=== PATIENT | male | born 1950 | race Caucasian/White ===

== ENCOUNTER → 2016-04-16 | Day surgery (SDC) | payer OTHER, BC ==
[~2016-04-16] MED LIST: IOPAMIDOL (ISOVUE-300) 100 ML BTL IV ONE
--- NOTE | 2016-04-16 17:18 | IR ---
Exchange of Bilateral Ureteral Stents History: Metastatic bladder cancer. Routine exchange for maintenance of patency. The patient has long pigtail nephrostomy-type tubes draining from each renal pelvis, passing through the small bowel cond uit, exiting externally into the collection bag. Medication: Ceftriaxone 1 gram intravenously for antimicrobial prophylaxis. No sedation or analgesia. Consent: Risks and benefits of the procedure were discussed in detail. Informed consent was obtained . Fluoroscopy time in minutes: 1.0. Estimated exposure in mGy: 19.7. Technique: Preliminary nephrostograms were imaged by injecting half-strength Isovue-300 into each of the catheters, and spot images were obtained. 0.035 Amplatz wires were placed bilaterally, and indwe lling tubes were replaced simultaneously with new 10-Faroese long pigtail nephrostomy tubes. Spot imag e was taken. Catheters were irrigated. A new collection bag was placed at the ureterostomy. The patie nt tolerated the procedure well and was allowed to leave the department. Findings: The previous tubes are patent, and replacement is uncomplicated. The new tubes are in good positions. Impression: Replacement of bilateral internal-external nephroureterostomy tubes. Plan: Routine exchange for maintenance of patency in three months. - - - - - - - - - - - - - - - - - - - - - - - - - - - - - - - - - - - - - - - - - - - - (PQRS Measures: Current medications were listed in the medical record, including all known prescript ions, [id number] medications, herbal medications, and nutritional supplements. Tobacco Use: Non e. Prophylactic Antibiotic: Ceftriaxone 1 gram intravenous was given 40 minutes before the procedure and then discontinued. VTE Prophylaxis: Unnecessary.)
--- NOTE | 2016-04-16 17:18 | IR ---
Exchange of Bilateral Ureteral Stents History: Metastatic bladder cancer. Routine exchange for maintenance of patency. The patient has long pigtail nephrostomy-type tubes draining from each renal pelvis, passing through the small bowel cond uit, exiting externally into the collection bag. Medication: Ceftriaxone 1 gram intravenously for antimicrobial prophylaxis. No sedation or analgesia. Consent: Risks and benefits of the procedure were discussed in detail. Informed consent was obtained . Fluoroscopy time in minutes: 1.0. Estimated exposure in mGy: 19.7. Technique: Preliminary nephrostograms were imaged by injecting half-strength Isovue-300 into each of the catheters, and spot images were obtained. 0.035 Amplatz wires were placed bilaterally, and indwe lling tubes were replaced simultaneously with new 10-Welsh long pigtail nephrostomy tubes. Spot imag e was taken. Catheters were irrigated. A new collection bag was placed at the ureterostomy. The patie nt tolerated the procedure well and was allowed to leave the department. Findings: The previous tubes are patent, and replacement is uncomplicated. The new tubes are in good positions. Impression: Replacement of bilateral internal-external nephroureterostomy tubes. Plan: Routine exchange for maintenance of patency in three months. - - - - - - - - - - - - - - - - - - - - - - - - - - - - - - - - - - - - - - - - - - - - (PQRS Measures: Current medications were listed in the medical record, including all known prescript ions, [id number]-acljsjq medications, herbal medications, and nutritional supplements. Tobacco Use: Non e. Prophylactic Antibiotic: Ceftriaxone 1 gram intravenous was given 40 minutes before the procedure and then discontinued. VTE Prophylaxis: Unnecessary.)
== END | disposition home or self-care (01) ==
LOC: FIMAGING 09:21
PROVIDERS: ATTEND Radiology Diagnostic Radiology
PROC: 0T29X0Z Change Drainage Device in Ureter, External Approach (ICD-10-PCS; principal; 2016-04-16)
DX: Z43.6 Encounter for attention to other artificial openings of urinary tract (principal); C67.9 Malignant neoplasm of bladder, unspecified
CPT/HCPCS: 50688; C1729; C1769; J0696; J1644; Q9967

== ENCOUNTER → 2016-07-16 | Day surgery (SDC) | payer OTHER, BC | END | disposition home or self-care (01) | LOC: FIMAGING 09:28 | PROVIDERS: ATTEND Specialist | PROC: [UNRECOGNIZED PROCEDURE] (principal; 2016-07-16) | DX: Z43.6 Encounter for attention to other artificial openings of urinary tract (principal); C67.9 Malignant neoplasm of bladder, unspecified | CPT/HCPCS: 50435; C1729; C1769; J0696; J1644; Q9967 ==

== ENCOUNTER 2016-09-21 13:37 | Inpatient (IN) | payer OTHER, BC ==
--- NOTE | 2016-09-21 14:06 | CPEKG ---
Heart Rate: 56 RR Interval: 1071 P-R Interval: 232 QRSD Interval: 96 QT Interval: 448 QTC Interval: 433 P Renwick: 23 QRS Renwick: -4 T Wave Renwick: 65 EKG Severity - ABNORMAL ECG - EKG Impression: SINUS RHYTHM EKG Impression: ATRIAL PREMATURE COMPLEX EKG Impression: FIRST DEGREE AV BLOCK EKG Impression: CONSIDER ANTEROSEPTAL INFARCT Electronically Signed By: Meenakshi Deluna 21-Sep-2016 21:19:25
--- NOTE | 2016-09-21 14:28 | EDPHY ---
H & P Time Seen by Provider: 09/21/16 14:00 HPI/ROS: CHIEF COMPLAINT: Disoriented, lethargic HISTORY OF PRESENT ILLNESS: The patient is a 66-year-old male with a history of bladder cancer that is currently in remission who presents emergency department with disorientation. The patient states that he had his bladder resected has completed 2 courses of chemotherapy for bladder cancer. He is currently in remission. He had knee replacement surgery on 08/14/2016. Since that time he has "not been right." He has had increased fatigue and confusion. He has had intermittent episodes of feeling sweaty. His describes him as a "sloth from [employer]." Patient feels as though he is responding to questions slowly. He has had no slurred speech. No focal weakness. No new leg pain. No fevers. No chest pain or shortness of breath. No abdominal pain. No nausea or vomiting. He has noted darker output from his urostomy bag REVIEW OF SYSTEMS: My complete review of systems is negative except as mentioned in the HPI. Past Medical/Surgical History: Includes AFib, DVT, bladder cancer, LATOSHA, constipation Past surgical history: Includes knee replacement The social history: The patient is . He does not smoke Smoking Status: Never smoked Physical Exam: Vitals noted. Afebrile GENERAL: Well-appearing, in no acute distress, alert. HEENT: Eyes normal to inspection, normal pharynx, no signs of dehydration. NECK: No thyromegaly, no lymphadenopathy, supple. RESPIRATORY: Clear to auscultation bilaterally, no rales, rhonchi or wheezing. CVS: Regular rate and rhythm, no rubs, murmurs, or gallops. ABDOMEN: Soft, nontender, nondistended, no organomegaly. Urostomy bag. Dark colored red urine. BACK: Normal to inspection, no CVA tenderness. SKIN: Normal color, no rash, warm, dry. No pallor. EXTREMITIES: No pedal edema, no calf tenderness, no Homans sign or cords, no joint swelling. Left surgical scar appears clean dry and intact. Knee brace in place. NEURO/PSYCH: Higher functions: Alert and Oriented x3. Normal speech and cognition. Normal mood and affect. Cranial nerves: Normal as tested. Cerebellar: Normal as tested. Good finger to nose, good [id number], normal gait. Peripheral exam: Normal motor exam. Normal sensation. Constitutional: Initial Vital Signs Temperature (C) 36.4 C 09/21/16 13:51 Heart Rate 61 09/21/16 13:51 Respiratory Rate 18 09/21/16 13:51 Blood Pressure 120/70 09/21/16 13:51 O2 Sat (%) 96 09/21/16 13:51 O2 Delivery Mode Room Air Allergies/Adverse Reactions: POISON OAK Allergy (Severe, Uncoded 09/21/16 13:49) Other-Enter Comments SALMON Allergy (Intermediate, Uncoded 09/21/16 13:49) Vomiting SUPER GLUE Allergy (Uncoded 09/21/16 13:49) Home Medications: Medication Instructions Recorded Herbals/Supplements -Info Only 1 ea PO DAILY 08/01/15 Apixaban [Eliquis] 5 mg PO BID 08/04/15 Sotalol 40 mg PO BID 09/20/15 Medical Decision Making - Diagnostics Imaging Results: Imaging Impressions Abdomen CT 09/21/16 14:31 Impression: 1. Osseous metastatic disease in the lumbosacral spine. 2. See above report for additional findings. Results called and discussed with Dr. Meenakshi Deluna on September 21, 2016 [address] 09/21/16 14:31 Impression: 1. Development of numerous hemorrhagic foci with associated peritumoral edema, consistent with extensive intracranial metastatic disease. 2. See above report for additional findings. Results called and discussed with Dr. Meenakshi Deluna on September 21, 2016 at 1629 hours. ED Course/Re-evaluation: In the emergency department I discussed possible etiologies with the patient and his . I answered all her questions. IV was placed. Laboratory studies ordered. Patient was given normal saline 1 L IV for hydration. Due the patient's disorientation head CT was ordered. Patient had decreased breath sounds on the left and a chest x-ray was ordered. Patient is due to get CT imaging of his abdomen and pelvis on Friday. This was ordered in the emergency department. Sinus at 56. First-degree AV block. Normal axis. Normal intervals. The patient's white count was normal. He had mildly low platelets. He was not anemic. Patient urine showed red cells and white cells. I am awaiting his chemistry panel. Patient was given Rocephin 1 g IV for UTI. I rechecked the patient while here. He had no new complaints. No focal deficits. 16 25: I discussed the CT results with Dr. Sandoval from Radiology. He reports the patient has numerous likely metastatic brain lesions, some of which are hemorrhagic. He recommends MRI imaging. I discussed the result with the patient and his . I answered all her questions. We are still waiting abdominal pelvis CT imaging. I discussed case with Dr. Russell who will admit the patient. I discussed the case with Dr. Slaughter. He recommended I give the patient Decadron 20 mg IV push. This was given. CT of the abdomen pelvis: Please refer the dictated report by Dr. Jasson Sandoval. Patient has metastatic disease to his bones. I discussed the result with the patient. I answered all his questions. Differential Diagnosis: My differential includes but is not limited to metastatic disease, bladder cancer, electrolyte abnormality, sugar abnormality, pneumonia, urinary tract infection, pyelonephritis, bacteremia, sepsis Critical Care Time: Patient required 35 minutes critical care time. This was due the patient's altered mental status, multiple metastatic hemorrhagic lesions to the patient's brain, need for rechecks, discussion with Oncology, and discussion with Dr. Jimenez. - Data Points Laboratory Results: Laboratory Results 09/21/16 14:05 09/21/16 14:05 09/21/16 09/21/16 09/21/16 14:11 14:05 14:05 WBC RBC Hgb Hct MCV MCH MCHC RDW Plt Count MPV Neut % (Auto) Lymph % (Auto) Patrick % (Auto) Eos % (Auto) Baso % (Auto) Nucleat RBC Rel Count Absolute Neuts (auto) Absolute Lymphs (auto) Absolute Monos (auto) Absolute Eos (auto) Absolute Basos (auto) Absolute Nucleated RBC Immature Gran % Immature Gran # PT 15.4 SEC H SEC (12.0-15.0) INR 1.22 H (0.83-1.16) APTT 33.4 SEC SEC (23.0-38.0) Sodium 137 mEq/L mEq/L (134-144) Potassium 4.0 mEq/L mEq/L (3.5-5.2) Chloride 103 mEq/L mEq/L (97-110) Carbon Dioxide 23 mEq/l mEq/l (22-31) Anion Gap 11 mEq/L mEq/L (8-16) BUN 21 mg/dL mg/dL (7-23) Creatinine 1.4 mg/dL H mg/dL (0.7-1.3) Estimated GFR 51 Glucose 111 mg/dL H mg/dL (70-100) Calcium 10.6 mg/dL H mg/dL (8.5-10.4) Total Bilirubin 1.6 mg/dL H mg/dL (0.1-1.4) Conjugated Bilirubin 0.4 mg/dL mg/dL (0.0-0.5) Unconjugated Bilirubin 1.2 mg/dL H mg/dL (0.0-1.1) AST 70 IU/L H IU/L (17-59) ALT 127 IU/L H IU/L (21-72) Alkaline Phosphatase 79 IU/L IU/L (38-126) Troponin I < 0.012 ng/mL ng/mL (0-0.034) Total Protein 6.6 g/dL g/dL (6.3-8.2) Albumin 4.1 g/dL g/dL (3.5-5.0) Lipase 108.0 IU/L IU/L (23-300) Urine Color YELLOW Urine Appearance TURBID Urine pH 6.0 (5.0-7.5) Ur Specific Vernon 1.024 (1.002-1.030) Urine Protein 2+ H (NEGATIVE) Urine Ketones NEGATIVE (NEGATIVE) Urine Blood 3+ H (NEGATIVE) Urine Nitrate POSITIVE H (NEGATIVE) Urine Bilirubin NEGATIVE (NEGATIVE) Urine Urobilinogen NEGATIVE EU EU (0.2-1.0) Ur Leukocyte Esterase 1+ H (NEGATIVE) Urine RBC 50-182 /hpf H /hpf (0-3) Urine WBC 50-182 /hpf H /hpf (0-3) Ur Epithelial Cells NONE SEEN /lpf /lpf (NONE-1+) Urine Bacteria 4+ /hpf H /hpf (NONE SEEN) Urine Mucus 3+ /lpf H /lpf (NONE-1+) Urine Glucose 1+ H (NEGATIVE) 09/21/16 14:05 WBC 5.53 10^3/uL 10^3/uL (3.80-9.50) RBC 4.56 10^6/uL 10^6/uL (4.40-6.38) Hgb 14.7 g/dL g/dL (13.7-17.5) Hct 42.7 % % (40.0-51.0) MCV 93.6 fL fL (81.5-99.8) MCH 32.2 pg pg (27.9-34.1) MCHC 34.4 g/dL g/dL (32.4-36.7) RDW 13.0 % % (11.5-15.2) Plt Count 110 10^3/uL L 10^3/uL (150-400) MPV 9.1 fL fL (8.7-11.7) Neut % (Auto) 80.6 % H % (39.3-74.2) Lymph % (Auto) 10.5 % L % (15.0-45.0) Patrick % (Auto) 7.6 % % (4.5-13.0) Eos % (Auto) 0.9 % % (0.6-7.6) Baso % (Auto) 0.2 % L % (0.3-1.7) Nucleat RBC Rel Count 0.0 % % (0.0-0.2) Absolute Neuts (auto) 4.46 10^3/uL 10^3/uL (1.70-6.50) Absolute Lymphs (auto) 0.58 10^3/uL L 10^3/uL (1.00-3.00) Absolute Monos (auto) 0.42 10^3/uL 10^3/uL (0.30-0.80) Absolute Eos (auto) 0.05 10^3/uL 10^3/uL (0.03-0.40) Absolute Basos (auto) 0.01 10^3/uL L 10^3/uL (0.02-0.10) Absolute Nucleated RBC 0.00 10^3/uL 10^3/uL (0-0.01) Immature Gran % 0.2 % % (0.0-1.1) Immature Gran # 0.01 10^3/uL 10^3/uL (0.00-0.10) PT INR APTT Sodium Potassium Chloride Carbon Dioxide Anion Gap BUN Creatinine Estimated GFR Glucose Calcium Total Bilirubin Conjugated Bilirubin Unconjugated Bilirubin AST ALT Alkaline Phosphatase Troponin I Total Protein Albumin Lipase Urine Color Urine Appearance Urine pH Ur Specific Vernon Urine Protein Urine Ketones Urine Blood Urine Nitrate Urine Bilirubin Urine Urobilinogen Ur Leukocyte Esterase Urine RBC Urine WBC Ur Epithelial Cells Urine Bacteria Urine Mucus Urine Glucose Medications Given: Discontinued Medications Sodium Chloride (Ns) 1,000 mls @ 0 mls/hr IV ONCE ONE; Wide Open PRN Reason: Protocol Stop: 09/21/16 14:31 Last Admin: 09/21/16 15:06 Dose: 1,000 mls Ceftriaxone Sodium/Dextrose (Rocephin 1 Gm (Premix)) 50 mls @ 100 mls/hr IV EDNOW ONE PRN Reason: Protocol Stop: 09/21/16 15:37 Last Admin: 09/21/16 16:13 Dose: 50 mls Departure - Departure Disposition: [facility] Inpatient Acute Clinical Impression: Metastatic cancer to brain Altered mental status Qualifiers: Altered mental status type: unspecified Qualified Code(s): R41.82 - Altered mental status, unspecified Condition: Good Referrals: Isidro Pat DO [Primary Care Provider] - As per Instructions
[2016-09-21] MEDS ORDERED: NS 1,000 ML IV ONE (14:30)
[2016-09-21 14:42] LABS: % IMMATURE GRANULYOCYTES 0.2 % (0.0-1.1); ABSOLUTE IMMATURE GRANULOCYTES 0.01 10^3/uL (0.00-0.10); ADD DIFF? NO; ADD MORPH? NO; ADD SCAN? NO; ATYPICAL LYMPHOCYTE FLAG 0 (0-99); FRAGMENT RBC FLAG 0 (0-99); HEMATOCRIT 42.7 % (40.0-51.0); HEMOGLOBIN 14.7 g/dL (13.7-17.5); LEFT SHIFT FLG 0 (0-99); LIPEMIA HEMOLYSIS FLAG 90 (0-99); MEAN CELL HEMOGLOBIN 32.2 pg (27.9-34.1); MEAN CELL HEMOGLOBIN CONCENTR. 34.4 g/dL (32.4-36.7); MEAN CELL VOLUME 93.6 fL (81.5-99.8); MEAN PLATELET VOLUME 9.1 fL (8.7-11.7); PLATELET CLUMPS FLAG 0 (0-99); PLATELET COUNT 110 10^3/uL (150-400); RED BLOOD CELL COUNT 4.56 10^6/uL (4.40-6.38)
[2016-09-21 14:45] LABS: COLOR YELLOW; LEUKOCYTE ESTERASE,URINE 1+ (NEGATIVE); NITRITE,URINE POSITIVE (NEGATIVE)
[2016-09-21 14:47] LABS: BACTERIA 4+ /hpf (NONE SEEN); MUCUS 3+ /lpf (NONE-1+); RBC,URINE 50-182 /hpf (0-3); WBC,URINE 50-182 /hpf (0-3)
[2016-09-21 14:47] LABS: INR 1.22 (0.83-1.16); PROTIME(PATIENT) 15.4 SEC (12.0-15.0)
[2016-09-21 14:48] LABS: ALANINE AMINOTRANSFERASE 127 IU/L (21-72); ALBUMIN 4.1 g/dL (3.5-5.0); ALKALINE PHOSPHATASE 79 IU/L (38-126); ANION GAP 11 mEq/L (8-16); APTT 33.4 SEC (23.0-38.0); ASPARTATE AMINOTRANSFERASE 70 IU/L (17-59); BILIRUBIN,TOTAL 1.6 mg/dL (0.1-1.4); BILIRUBIN-CONJUGATED 0.4 mg/dL (0.0-0.5); BILIRUBIN-UNCONJUGATED 1.2 mg/dL (0.0-1.1); CALCIUM 10.6 mg/dL (8.5-10.4); CARBON DIOXIDE 23 mEq/l (22-31); CHLORIDE 103 mEq/L (97-110); CREATININE 1.4 mg/dL (0.7-1.3); GLOMERULAR FILTRATION RATE 51; GLUCOSE 111 mg/dL (70-100); SODIUM 137 mEq/L (134-144); TOTAL PROTEIN 6.6 g/dL (6.3-8.2)
[2016-09-21 15:22] LABS: TROPONIN I < 0.012 ng/mL (0-0.034)
[2016-09-21] MEDS ORDERED: DEXAMETHASONE 10 MG/ML VIAL IVP ONE (16:54)
[2016-09-21] MEDS ORDERED: GADOBUTROL 10 ML VIAL IVP ONE (17:23)
[2016-09-21] MEDS ORDERED: MAG HYDROX/AL HYDROX/SIMETH 30 ML UDCUP ONE (18:22)
[2016-09-21] MEDS ORDERED: ONDANSETRON DISINTEGRATING 4 MG TAB PO PRN (19:04)
[2016-09-21] MEDS ORDERED: ONDANSETRON 4 MG/2 ML VIAL IVP PRN (19:04)
[2016-09-21] MEDS ORDERED: ACETAMINOPHEN 325 MG TAB PO PRN (19:04)
--- NOTE | 2016-09-21 20:28 | GHP ---
[f rep st] HISTORY AND PHYSICAL DATE OF ADMISSION: 09/21/2016 CHIEF COMPLAINT: Malaise and fatigue. HISTORY OF PRESENT ILLNESS: The patient is a 66-year-old white male with known bladder cancer, lenin rachel followed by Medical Oncology. He was due to get some surveillance imaging tests next week, but ov er the past week, he has grown gradually more lethargic. He was having some sweats at night that we re interfering with sleep and today, the lethargy became more severe, and his family brought him to the emergency department. His is the main historian, although the patient does appear oriented and is able to answer my questions. His reports that she has noted gradually worsening weakne ss and mild cognitive issues over the past week. He generally has been somewhat weak since knee surgery on August 14. He has had a little more difficu lty getting around and has been working with physical therapy, so overall his physical status has be en somewhat slowed over the last month and a half since that surgery. The mental slowness seems wor se just over the last week or so, however. PAST MEDICAL HISTORY: 1. Bladder cancer diagnosed in 2014, with the bladder removed surgically in May of 2015. He n ow has stents in his kidneys draining into an external bag on his right abdomen. 2. History of sepsis admission shortly after the bladder cancer surgery in June of 2015, requiring hospitalization. 3. History of atrial fibrillation, on Eliquis. 4. History of right leg DVT and pulmonary embolism in 2006, shortly after an orthopedic procedure, for which he took warfarin for 2 years. He stopped it briefly, but then resumed it because of atria l fibrillation and has been on anticoagulation chronically for several years. 5. Obstructive sleep apnea, for which he has been treated with CPAP for the past 2 years. 6. 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 7. Total knee replacement in 2014, shortly after which he was diagnosed with bladder cancer. This appears to have delayed a subsequent diagnosis of patellar fracture postoperatively on that side, wh ich ultimately ended up needing repeat surgery just 1 month ago. 8. Remote history of cholecystectomy. 9. Remote history of appendectomy. MEDICATIONS: Eliquis 5 mg daily, sotalol 40 mg b.i.d., gabapentin 300 mg in the morning, 300 mg in the afternoon, and 600 mg at bedtime (he discontinued this medication as of a week ago or so because of general lethargy). 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 He lives at home with his . They have 2 children, a daughter in this area and another child in [place]. He has one granddaug hter who is 4 years old, living in [place]. He does not drink alcohol. He smokes an occasional cig ar, but has never been a cigarette smoker. REVIEW OF SYSTEMS: CONSTITUTIONAL: Weight has been stable. NEUROLOGIC: See HPI. VISION: No pro blems. ENT: He has difficulty breathing through his nose chronically because of a history of broke n noses. RESPIRATORY: Denies shortness of breath, cough, or wheezing. CARDIOVASCULAR: No chest p ains. GI: Denies nausea, vomiting, diarrhea, constipation, or indigestion. : See HPI. EXTREMI TIES: Has some chronic edema in both legs, a bit worse in the left leg since his recent knee surger y. PHYSICAL EXAMINATION: GENERAL: He is a well-developed white male, lying comfortably in bed. He is oriented, but answers questions a little bit slowly. Very pleasant and in no distress. VITAL SIGN S: Blood pressure 120/70, heart rate 61, oxygen saturation 96%, and he is afebrile. EYES: Pupils equal, round, and reactive to light. Conjunctivae are pink. Throat, mouth, and oropharynx are evelyn gn. NECK: Supple, without adenopathy or thyromegaly. Carotids are 2+ bilaterally. LUNGS: Clear. HEART: Regular at the time of my exam. ABDOMEN: Soft and nontender, without masses. He has an ostomy bag on his right lower quadrant. The skin surrounding this area looks clean and dry. No ope n sores. EXTREMITIES: 1+ edema bilaterally. He has some brawny discoloration on the right leg (si te of his old DVT). He has no calf pain. BACK: There is no bony tenderness. DIAGNOSTIC DATA: EKG shows a sinus rhythm, with borderline first-degree AV block. I read the sharon ng personally. Abdominal CT scan shows lumbar osseous metastases, but no visceral pathology. Head CT scan shows extensive hemorrhagic metastases. LABORATORY DATA: CBC is normal. WBC 5000, hemoglobin 14. INR is normal at 1.22. Electrolytes are normal. BUN 21, creatinine 1.4, calcium mildly elevated at 10.6. AST and ALT are mildly elevated at 70 and 127, respectively. Urinalysis is significant for 50-182 RBCs and 50-182 WBCs per high-pow er field, with 4+ bacteria and 1+ glucose. IMPRESSION: 1. Lethargy, with mild cognitive slowing. Possible causes include what appear to be urinary tract infection and newly discovered brain metastases. Metabolically, he otherwise appears to be doing ok ay. 2. Bladder cancer, metastatic, with evidence of lumbar metastases on CT scan and newly discovered e vidence of brain metastases. He has received a loading dose of Solu-Medrol. We will continue Solu- Medrol q.6 hours for now. 3. Urinary tract infection. Treat with Rocephin. 4. Elevated liver enzymes. This is chronic and basically stable. 5. Hypercalcemia. Very mild. Possibly just related to some mild dehydration, as his appetite has not been great over the last few days. He does not have any nausea or vomiting, and he does not sunny ear severely dehydrated. At this point, this did not require treatment. 6. Mild thrombocytopenia. This is longstanding and stable. 7. Peripheral neuropathy. This is not bothering him at the present time, and gabapentin has been h eld because of some lethargy. I will continue to hold that. 8. Atrial fibrillation. His rate is stable, and he is in a sinus rhythm at this time. Continue El nasra. /[id number]/MODL
[2016-09-21] MEDS: CHOLECALCIFEROL VIT D3 1,000 UNITS TAB PO SCH (23:07)
[2016-09-21] MEDS: APIXABAN 5 MG TAB PO SCH (23:07)
[2016-09-21] MEDS: DEXAMETHASONE 4 MG/ML VIAL IVP SCH (23:09)
[2016-09-21] MEDS: SOTALOL HCL 80 MG TAB PO SCH (23:10)
[2016-09-21] MEDS: D5W 1/2 NS W/ 10 KCl/L 1,000 ML IV SCH (23:58)
[2016-09-22] MEDS: DEXAMETHASONE 4 MG/ML VIAL IVP SCH ×3 (05:59→18:27)
--- NOTE | 2016-09-22 08:23 | HOSPPROG ---
Hospitalist Progress Note Assessment/Plan: #Gram negative URI: >100k. Cont IV CTX, await sensitivities #Weakness: multifactorial with UTI, brain mets/ PT/OT #Metastatic bladder cancer: new brain mets. Whole-brain XRT is best option. Rad- Oncology has been consulted -cont Dex #Hypercalcemia: IVFs #Transaminitis: chronic, stable. Repeat in AM #Paroxysmal a fib: Eliquis #Diet: regular #DVT ppx: Eliquis #Disp: warrants inpt admission with UTI, new mets. IV abx, Rad-onc consultation Subjective: no f/c/s/ Objective: Vital Signs Temp Pulse Resp BP Pulse Ox 36.3 C 55 L 18 156/86 H 96 09/22/16 06:13 09/22/16 06:13 09/22/16 06:13 09/22/16 06:13 09/22/16 06:13 09/21/16 09/22/16 09/23/16 05:59 05:59 05:59 Intake Total 625 150 Output Total 300 Balance 625 -150 PT 15.4 SEC (12.0-15.0) H 09/21/16 14:05 INR 1.22 (0.83-1.16) H 09/21/16 14:05 - Physical Exam Constitutional: no apparent distress Eyes: PERRL Ears, Nose, Mouth, Throat: moist mucous membranes, hearing normal Cardiovascular: regular rate and rhythym, no murmur, rub, or gallop Respiratory: no respiratory distress, no rales or rhonchi Gastrointestinal: normoactive bowel sounds, soft, non-tender abdomen Genitourinary: no bladder fullness, other (ostomy with pink tissue. mild hematuria) Skin: warm Musculoskeletal: full muscle strength Neurologic: AAOx3, CN II-XII Intact Psychiatric: interacting appropriately ICD10 Worksheet Patient Problems: Problems Problem Status Onset Altered mental status Acute Metastatic cancer to brain Acute Atrial fibrillation and flutter Acute Bladder tumor Acute Lightheadedness Acute Orthostatic hypotension Acute VRE (vancomycin-resistant Enterococci) Acute 08/04/15
[2016-09-22] MEDS: cefTRIAXone 2 GM in D5W 50 ML IV SCH (10:15)
[2016-09-22] MEDS: ASCORBIC ACID 500 MG TAB PO SCH (10:16)
[2016-09-22] MEDS: APIXABAN 5 MG TAB PO SCH ×2 (10:16→20:41)
[2016-09-22] MEDS: SOTALOL HCL 80 MG TAB PO SCH ×2 (10:16→20:41)
--- NOTE | 2016-09-22 12:50 | GCON ---
[f rep st] CONSULTATION MEDICAL ONCOLOGY CONSULTATION REFERRING PHYSICIAN: Zack Russell MD REASON FOR CONSULTATION: Newly diagnosed metastatic disease to the brain from bladder cancer. RECOMMENDATIONS: 1. Agree with dexamethasone as you are doing. 2. The patient will need a radiation oncology consultation on Friday for consideration of radiation to his brain. 3. Physical therapy evaluation and treat. 4. Occupational therapy evaluation and treat. 5. Agree with empiric therapy for pyuria. 6. The patient will need further metastatic workup which will likely be accomplished as an outpatie nt in view of his suspicion of bony metastatic disease on CT scan. ASSESSMENT: This 66-year-old white male was diagnosed with transitional cell carcinoma of the [facility] in January of 2015. At that time, he had stage 3 cancer. His staging was T3b N0 M0. He underwe nt a radical cystectomy in May of 2015. He had neoadjuvant chemotherapy with gemcitabine and c isplatin. Postoperatively, he was felt to be disease free. Over the past week or so, he has had gradually decreasing mental status. He has had fatigue and low er extremity numbness. He was also having some cold sweats. His functional status deteriorated to the point where he was brought to the emergency room for further evaluation last night. He, on CT o f the brain, and subsequently MRI, was found to have multiple brain metastases in the supra, as well as infratentorial, regions. There was significant vasogenic edema. Also on his CT scan, he was no fercho to have a possible bony metastatic disease in his spine as well as pelvis. This is not yet full y evaluated. The patient was placed on dexamethasone. This morning, he is feeling somewhat better and slightly m ore energetic. He denies any headache. He has no nausea or vomiting. The patient is currently approximately 15 months out from his surgery for stage 3 bladder cancer. U nfortunately, it appears that he has widespread metastatic disease at this time. His brain metastas es are the most life-threatening. Because of their multiplicity as well as infratentorial location, he is not a good candidate for surgical excision or for CyberKnife therapy, for that matter, due to the number and size of lesions. Therefore I think a consultation with Radiation Oncology for whole -brain radiation is most appropriate. I have placed a consult to the Radiation Oncology Department and hopefully the patient will be seen tomorrow. The patient will need further metastatic workup. If his brain metastases come under adequate contro l, then he will be a candidate for systemic treatment. It is hard to know whether his acute deterioration is related to infections in his urinary system ve rsus progressive brain metastases. I think, at the moment, treating both is appropriate. HISTORY OF PRESENT ILLNESS: Please see Assessment. PAST MEDICAL HISTORY: Remarkable for atrial fibrillation. He has also had pulmonary emboli in the past. He has had asbestos exposure in 1992. His pulmonary embolism and deep venous thrombosis were posttraumatic, which occurred after a right leg fracture. This was in 2006. He is chronically ant icoagulated because of his atrial fibrillation. PAST SURGICAL HISTORY: Remarkable for neoadjuvant chemotherapy, then followed by a radical cystecto my on June 09, 2015. He also had left shoulder joint replacement surgery in 2012. In 2011 he h ad transurethral resection of the prostate. FAMILY HISTORY: Remarkable for his father dying of lung cancer at age 58. His mother does not have a history of malignancy as far as I am aware. SOCIAL HISTORY: The patient is to [place]. 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 He has alcohol occasionally. REVIEW OF SYSTEMS: Remarkable for fatigue, decreased mental acuity, occasional night sweats, periph eral neuropathy. He currently denies any nausea or vomiting. His urine has not changed in characte r. He reports no change in bowel habits. He reports no headaches or significant pain at this time. Ten system review is otherwise unremarkable. PHYSICAL EXAMINATION: GENERAL: An alert white male who has some slowness in verbal articulation. HEENT: His mouth shows no ulcerations or exudates. LUNGS: No rales or rhonchi. CARDIAC: Exam sh ows an irregularly irregular rhythm with controlled rate. ABDOMEN: Shows active bowel sounds. No hepatosplenomegaly is noted. No significant tenderness. LABORATORY EXAM: White count of 5.53, with a hemoglobin of 14.7, platelet count 110,000. His chemi stries show an elevated ALT at 127, an elevated AST at 70, elevated total bilirubin 1.6, slightly el evated calcium at 10.6, a creatinine which is elevated at 1.4. Review of his MRI of the brain shows multiple mass lesions consistent with metastatic disease and with surrounding vasogenic edema, both supra and infratentorially. Review his CT shows possible bony metastatic disease. Thank you very much for allowing us to participate in this pleasant gentleman's care. We look for[address]rist[address] to assisting with his management. /[id number]/MODL
[2016-09-22] MEDS: D5W 1/2 NS W/ 10 KCl/L 1,000 ML IV SCH (14:42)
[2016-09-22 17:18] LABS: HEMATOCRIT 39.8 % (40.0-51.0); HEMOGLOBIN 13.5 g/dL (13.7-17.5); MEAN CELL HEMOGLOBIN 31.9 pg (27.9-34.1); MEAN CELL HEMOGLOBIN CONCENTR. 33.9 g/dL (32.4-36.7); MEAN CELL VOLUME 94.1 fL (81.5-99.8); RED BLOOD CELL COUNT 4.23 10^6/uL (4.40-6.38); RED CELL DISTRIBUTION WIDTH 12.9 % (11.5-15.2)
[2016-09-22] MEDS: CHOLECALCIFEROL VIT D3 1,000 UNITS TAB PO SCH (20:41)
[2016-09-22] MEDS: CALCIUM CARBONATE 500 MG CHEWABLE TAB PO PRN (22:44)
[2016-09-23] MEDS: DEXAMETHASONE 4 MG/ML VIAL IVP SCH ×4 (00:09→18:08)
[2016-09-23] MEDS: D5W 1/2 NS W/ 10 KCl/L 1,000 ML IV SCH ×2 (04:09→19:14)
[2016-09-23 06:46] LABS: ANION GAP 7 mEq/L (8-16); CARBON DIOXIDE 24 mEq/l (22-31); CHLORIDE 105 mEq/L (97-110); CREATININE 1.2 mg/dL (0.7-1.3); GLOMERULAR FILTRATION RATE > 60; GLUCOSE 130 mg/dL (70-100); POTASSIUM 4.4 mEq/L (3.5-5.2); SODIUM 136 mEq/L (134-144)
[2016-09-23] MEDS ORDERED: cefTRIAXone 1 GM in D5W 50 ML IV SCH (09:54)
[2016-09-23] MEDS: SOTALOL HCL 80 MG TAB PO SCH ×2 (09:55→20:30)
[2016-09-23] MEDS: APIXABAN 5 MG TAB PO SCH ×2 (09:56→20:30)
[2016-09-23] MEDS: ASCORBIC ACID 500 MG TAB PO SCH (09:56)
[2016-09-23] MEDS: cefTRIAXone 2 GM in D5W 50 ML IV SCH (09:57)
--- NOTE | 2016-09-23 10:03 | HOSPPROG ---
Hospitalist Progress Note Assessment/Plan: # weakness - unclear if d/t new brain mets vs UTI - improving, cont PT/OT # e. coli/psa in urine, hx ileal conduit, change in urine appearance - currently on rocephin (not covering psa) - will d/w ID regarding change in abx or continuing to treat UTI - check procalcitonin, ID consult # bladder cancer, mets to bone and brain - onc considering brain irradiation - dexamethasone # paroxysmal a-fib: eliquis (ok'd by onc) and sotolol # transaminitis: chronic Subjective: slowly feels that he is getting stronger; notes darker urine today Objective: Vital Signs Temp Pulse Resp BP Pulse Ox 36.7 C 60 16 123/76 H 96 09/23/16 08:48 09/23/16 08:48 09/23/16 08:48 09/23/16 09:46 09/23/16 08:48 Laboratory Results 09/22/16 16:42 09/23/16 04:51 09/22/16 09/23/16 09/24/16 05:59 05:59 05:59 Intake Total 625 1591 Output Total 3000 Balance 625 -1409 PT 15.4 SEC (12.0-15.0) H 09/21/16 14:05 INR 1.22 (0.83-1.16) H 09/21/16 14:05 - Physical Exam Constitutional: no apparent distress, appears nourished Cardiovascular: regular rate and rhythym, no murmur, rub, or gallop Respiratory: no respiratory distress, no rales or rhonchi, clear to auscultation Gastrointestinal: normoactive bowel sounds, soft, non-tender abdomen, other ( ostomy with dark urine on R side of abd) ICD10 Worksheet Patient Problems: Problems Problem Status Onset Atrial fibrillation and flutter Acute Bladder tumor Acute Lightheadedness Acute Orthostatic hypotension Acute VRE (vancomycin-resistant Enterococci) Acute 08/04/15 Altered mental status Acute Metastatic cancer to brain Acute
--- NOTE | 2016-09-23 12:45 | SOAPPROG ---
SOAP Progress Note Assessment/Plan: Assessment/Plan: 66 yo man w Stage IV transitional cell ca who p/w weakness and increasing confusion MRI shows multiple enhancing lesions in brain (supra- and infratentorial) 1. Brain lesions - c/w metastatic dz from transitional cell ca (Stage III at diagnosis) had neoadj chemo followed by radical cystectomy/prostatectomy/lymph node dissection first line treatment for metastatic dz w carbo/taxol (mediastinal and supraclavicular nodes) completed in 05/2016 CT CAP in 06/[address] here shows ?new bone lesions BUT comparison made to 2016 scan - asked radiology to compare newest scans D/W RadOnc today - consulted to see Cont on dex Will need repeat body imaging as outpt - PET preferred 2. UTI - cont abx 3. Weakness - PT/OT 09/23/16 12:40 09/23/16 12:41 09/23/16 12:46 Subjective: No acute distress alert and oriented Objective: Vital Signs Temp Pulse Resp BP Pulse Ox 36.7 C 60 16 123/76 H 96 09/23/16 08:48 09/23/16 08:48 09/23/16 08:48 09/23/16 09:46 09/23/16 08:48 Laboratory Results 09/22/16 16:42 09/23/16 04:51 09/22/16 09/23/16 09/24/16 05:59 05:59 05:59 Intake Total 625 1591 Output Total 3000 Balance 625 -1409 PT 15.4 SEC (12.0-15.0) H 09/21/16 14:05 INR 1.22 (0.83-1.16) H 09/21/16 14:05 Gen - NAD HEENT - anicteric CV - RRR Chest - CTA Abd - soft, slight TTP lower pelvic area Ext - no sig edema; R knee brace Neuro - IBRAHIM, A&O x 3 ICD10 Worksheet Patient Problems: Problems Problem Status Onset Altered mental status Acute Metastatic cancer to brain Acute Atrial fibrillation and flutter Acute Bladder tumor Acute Lightheadedness Acute Orthostatic hypotension Acute VRE (vancomycin-resistant Enterococci) Acute 08/04/15
[2016-09-23] MEDS: PANTOPRAZOLE SODIUM 40 MG in NS 100 ML IV SCH (13:13)
[2016-09-23] MEDS: CALCIUM CARBONATE 500 MG CHEWABLE TAB PO PRN (13:16)
[2016-09-23] MEDS: CHOLECALCIFEROL VIT D3 1,000 UNITS TAB PO SCH (20:30)
[2016-09-24] MEDS: DEXAMETHASONE 4 MG/ML VIAL IVP SCH ×4 (00:28→18:10)
[2016-09-24] MEDS: D5W 1/2 NS W/ 10 KCl/L 1,000 ML IV SCH (09:05)
[2016-09-24] MEDS: APIXABAN 5 MG TAB PO SCH (09:29)
[2016-09-24] MEDS: ASCORBIC ACID 500 MG TAB PO SCH (09:29)
[2016-09-24] MEDS: SOTALOL HCL 80 MG TAB PO SCH (09:29)
[2016-09-24] MEDS: PANTOPRAZOLE SODIUM 40 MG in NS 100 ML IV SCH (09:29)
[2016-09-24] MEDS: CALCIUM CARBONATE 500 MG CHEWABLE TAB PO PRN (09:33)
--- NOTE | 2016-09-24 10:01 | GCON ---
[f rep st] CONSULTATION RADIATION ONCOLOGY CONSULTATION NOTE DATE OF CONSULTATION: 09/23/2016 REFERRING PHYSICIAN: Jennifer Carrillo MD REASON FOR CONSULTATION: Newly diagnosed intracranial metastasis from bladder cancer, role for radiation. PATIENT IDENTIFICATION: The patient is a 66-year-old gentleman with an initial Stage III, T3b N0 M0, transitional cell carcinoma of his bladder, status post neoadjuvant gemcitabine plus cisplatin followed by radical cystectomy with ileal conduit and pelvic lymph node dissection. He ultimately developed metastatic disease in February 2016 and was treated with carboplatin and Taxol. Recently he was admitted on the [facility] with neurologic symptoms and was found to have several intracranial metastases for which I am being consulted for the role of radiation to manage. HISTORY OF PRESENT ILLNESS: The patient was initially diagnosed with his transitional cell of the bladder in January 2015 when he presented with painless hematuria. He had a 5 cm muscle invasive bladder cancer that was involved in the posterior wall of the bladder and no evidence of metastatic disease. From February 13, 2015 to May 02, 2015, he received gemcitabine and cisplatin under the care of Dr. Isidro Jimenez. He received 4 cycles and proceeded to radical cystectomy with pelvic lymph node dissection and ileal conduit reconstruction of his bladder on June 09, 2015. Margins were negative, and he was disease free up until February of 2016 when he developed metastatic disease to the left supraclavicular lymph node, posterior mediastinal lymph node, and several bone metastases. Biopsy of the supraclavicular lymph node revealed metastatic bladder cancer. He received carboplatin and Taxol which he tolerated relatively well besides some neutropenic fever, diarrhea, and malaise. He was last seen by Dr. Jimenez on July 01, 2016, and was feeling fairly ill from the chemotherapy. The patient elected not to have full intervention at that time, and Dr. Jimenez recommended a drug holiday, a wait and watch approach , and a repeat CT scan in 3 months. On September 20, 2016, the patient was brought to [facility] for new onset confusion, mental status changes, fatigue, lower extremity numbness as well as issues with coordination. A CT scan of his head was performed that showed development of numerous hemorrhagic foci intracranially with peritumor edema consistent with extensive intracranial metastatic disease. A CT abdomen and pelvis with IV contrast demonstrated osseous metastasis in the lumbosacral spine. A MRI of the brain demonstrated nearly innumerable metastatic lesions, supratentorial/infratentorial in the brain. The patient was started on high-dose dexamethasone and was also treated for potential UTI. INTERVAL HISTORY: Since Rommel has been in the hospital and treated with steroids , overall he does report improvement of his neurologic symptoms. He continues to have bilateral feet numbness which he relates to neuropathy from his prior chemotherapy. He has been walking the halls with Physical Therapy and the assistance of a walker which he is tolerating well. His confusion is better. His coordination is improved. He denies any headaches, nausea, vomiting, other focal neurologic deficits, or seizure like activity. His performance status prior to coming to the hospital was relatively good with an ECOG of 1. He was using a walker to ambulate, but he recently had left arthroscopic knee replacement about a month ago, and the walker was mainly for that. He was quite functional at the house performing all of his activities of daily living and being chair bound or bedbound for less than 50% of the day. He denies any new lumps, bumps, or masses growing over the body. Denies any vision or hearing changes. Denied any fever, chills, night sweats, or weight loss. REVIEW OF SYSTEMS: A complete review of systems is obtained and is negative except as mentioned above. PAST MEDICAL HISTORY: 1. Metastatic transitional cell carcinoma of the bladder. 2. Atrial fibrillation. 3. Pulmonary emboli. 4. DVT after a right leg fracture. PAST SURGICAL HISTORY: 1. Radical cystectomy, pelvic lymph node dissection, and ileal conduit reconstruction in May 2015. 2. Left shoulder joint replacement 2012. 3. Arthroscopic knee replacement. 4. Transurethral resection of the prostate. FAMILY HISTORY: His father of lung cancer at the age of 58. No other history of cancer in the family. SOCIAL HISTORY: Today in his hospital room, he is accompanied by his daughter and his . They live in [place]. 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 He had occasional alcohol use. No significant smoking history. HOSPITAL MEDICATIONS: Tylenol as needed, Eliquis, vitamin C, Tums, Rocephin, vitamin D, dexamethasone 6 mg q.6, Zofran, pantoprazole, sotalol. ALLERGIES: Poison oak, salmon, super glue. PHYSICAL EXAMINATION: VITAL SIGNS: Blood pressure 163/95, pulse 70, oxygen sat is 96%, respiratory rate 16, temperature 36.3. GENERAL: The patient is a well-appearing, robust, 66-year-old gentleman who is lying in his hospital bed in no acute distress. HEAD AND NECK: Oral cavity, oropharynx without any mucosal abnormalities. Moist mucous membranes. Fair dentition. CARDIOVASCULAR : Regular rate and rhythm. Normal S1, S2. No murmurs, rubs, or gallops. LUNGS: Clear to auscultation bilaterally. No wheezes, crackles, or rubs. ABDOMEN: Soft, nontender, nondistended. Bowel sounds are present. No masses or lymphadenopathy palpated. LYMPHATICS: Supraclavicular, cervical, and axillary lymph nodes examined and found to be unremarkable. NEUROLOGIC: Cranial nerves 2-12 are intact with 5/5 strength. Sensation to light touch is intact bilaterally. Gait exam deferred. Cerebellar testing and coordination testing are actually intact. IMAGING: Please see HPI above. PATHOLOGY: Metastatic transitional cell carcinoma of the bladder. ASSESSMENT AND PLAN: The patient is a 66-year-old gentleman with metatarsal transitional cell carcinoma of the bladder recently admitted to [facility] with diffuse intracranial metastasis and neurologic symptoms. He has been started on steroids with some improvement of symptoms, and I am being consulted for the role of radiation. I had a long discussion with Mellissa Carney, and Mitzy today in the hospital regarding the diagnosis and management of metastatic transitional cell carcinoma of the bladder. The patient has recently been on a chemo holiday under the care of Dr. Jimenez and was actually preparing for a re-staging scan to assess his disease extent. Unfortunately, MRI of the brain has shown almost innumerable brain metastasis of decent size, some associated with peritumoral edema and tumoral hemorrhage, and he has clinically improved with high-dose steroid treatment. CT scan of the abdomen and pelvis actually shows minimal disease in those locations with some sclerotic bone lesions that appear to be asymptomatic at this point. I discussed that the main stay of treatment for stage IV cancer is systemic treatment which the patient is well aware of having recently received some CarboTaxol earlier this year but seemed to tolerate it poorly to the point where Dr. Jimenez recommended a chemo holiday. I will discuss with Dr. Jimenez regarding any systemic treatment options; however, the most important thing in my opinion is obviously the intracranial tumor progression which he is the most symptomatic from and is the bulkiest site of his current disease. Given the size and location of these lesions, I think it is most amenable to whole brain radiation treatment. I discussed the various radiation treatment options with the patient and his family today which would include whole brain radiation versus a very focused stereotactic radiosurgery approach. Given the fact that his lesions are innumerable, it is not feasible to use a stereotactic radiation treatment and, therefore, would recommend whole brain radiation. Given the size and number of these lesions, I would recommend a course of 15 fractions of external beam whole brain treatment with the likely time frame of starting this week given his symptoms which seem to have improved with steroids. After which , he will need to revisit with Dr. Jimenez for discussion of systemic treatment options. In the meantime, he will likely undergo a PET CT scan which is indicated given the need to re-stage the rest of his body. I do not believe he has had any recent chest imaging, and the most recent CT scan was just of the abdomen and pelvis so we need to assess for disease in the chest as well as he had previous mediastinal lymph nodes and supraclavicular lymph nodes seen on prior imaging. I discussed the logistics, risks, benefits, and side effect of profile of external beam radiotherapy to the whole brain. Side effects would include but are not limited to fatigue, hair loss, scalp irritation, headaches, nausea and vomiting, worsening of any of his current neurologic symptoms temporarily, vision changes, hearing changes, an inability to control these tumors, long- term neurocognitive decline, long-term brain damage, or second malignancy. I discussed that the goals of treatment are palliative and intent and designed to at least stabilize these tumors with the hope to hopefully have them shrink them down and not grow for a period of time although it is likely that they will eventually grow or he will have some disease progression in the brain at which point there may be other treatment options. After discussion today, the patient and his family do wish to proceed with external beam whole brain radiation. I will work with my staff to get him into our department in the next day or 2 for a radiation planning session and hopefully be able to start later this week. The patient's disposition is that he may be actually discharged in the next day or 2. I have discussed this case with his hospitalist, Dr. Guy Hernandez, who will actually discontinue the antibiotics as his urine culture was not consistent with clear cut urinary tract infection, and actually the IV antibiotic is really 1 barrier to being discharged. The other issue is his mobility and function which actually seems to be fairly intact. He is working with PT/OT who seem to think he can take care of himself at home and be a safe candidate for home care. Not to mention his is quite comfortable with him at home using a walker which he has been using since the time of his recent knee replacement, so we likely will proceed with radiation as an outpatient. The patient is encouraged to contact our department for any questions or concerns in the interim. /[id number]/MODL MTDD
--- NOTE | 2016-09-24 10:54 | HOSPPROG ---
Hospitalist Progress Note Assessment/Plan: # weakness - suspect more related to brain mets - improving, cont PT/OT # e. coli/psa in urine, hx ileal conduit - currently on rocephin (not covering psa) - informal discussion with ID - likely represents colonization - hold abx, observe # hematuria - will hold eliquis # bladder cancer, mets to bone and brain - onc considering brain irradiation - dexamethasone # paroxysmal a-fib: eliquis (ok'd by onc but on hold) and sotolol # transaminitis: chronic Subjective: hasn't gotten out of bed yet today; confusion seems better Objective: Vital Signs Temp Pulse Resp BP Pulse Ox 36.6 C 55 L 18 159/75 H 97 09/24/16 09:30 09/24/16 09:30 09/24/16 09:30 09/24/16 09:30 09/24/16 09:30 Laboratory Results 09/22/16 16:42 09/23/16 04:51 09/23/16 09/24/16 09/25/16 05:59 05:59 05:59 Intake Total 1591 2662 Output Total 3000 3650 Balance -1409 -988 PT 15.4 SEC (12.0-15.0) H 09/21/16 14:05 INR 1.22 (0.83-1.16) H 09/21/16 14:05 - Physical Exam Constitutional: no apparent distress, appears nourished Cardiovascular: regular rate and rhythym, no murmur, rub, or gallop Respiratory: no respiratory distress, no rales or rhonchi, clear to auscultation Gastrointestinal: normoactive bowel sounds, soft, non-tender abdomen, no palpable masses Genitourinary: other (ileostomy with hematuria) ICD10 Worksheet Patient Problems: Problems Problem Status Onset Atrial fibrillation and flutter Acute Bladder tumor Acute Lightheadedness Acute Orthostatic hypotension Acute VRE (vancomycin-resistant Enterococci) Acute 08/04/15 Altered mental status Acute Metastatic cancer to brain Acute
--- NOTE | 2016-09-24 11:48 | SOAPPROG ---
SOAP Progress Note Assessment/Plan: Assessment/Plan: 66 yo man w Stage IV transitional cell ca who p/w weakness and increasing confusion MRI showed multiple enhancing lesions in brain (supra- and infratentorial) 1. Brain lesions - c/w metastatic dz from transitional cell ca (Stage III at diagnosis) had neoadj chemo followed by radical cystectomy/prostatectomy/lymph node dissection first line treatment for metastatic dz w carbo/taxol (mediastinal and supraclavicular nodes) completed in 05/2016 CT CAP in 06/[address] here shows ?new bone lesions BUT comparison made to 2016 scan - asked radiology to compare newest scans Appreciate RadOnc - will be simulated today Cont on dex Will need repeat body imaging as outpt - PET preferred 2. UTI - holding abx; maybe contamination w ileal conduit 3. Weakness - PT/OT 4. thrombocytopenia - unclear etiology, monitor mild hematuria from eliquis which has been held 5. Dispo - anticipate in next couple days - adjusting home meds Subjective: No acute events Denies pain confusion improved some blood in urine Objective: Vital Signs Temp Pulse Resp BP Pulse Ox 36.6 C 55 L 18 159/75 H 97 09/24/16 09:30 09/24/16 09:30 09/24/16 09:30 09/24/16 09:30 09/24/16 09:30 Laboratory Results 09/22/16 16:42 09/23/16 04:51 09/23/16 09/24/16 09/25/16 05:59 05:59 05:59 Intake Total 1591 2662 Output Total 3000 3650 Balance -1409 -988 PT 15.4 SEC (12.0-15.0) H 09/21/16 14:05 INR 1.22 (0.83-1.16) H 09/21/16 14:05 Gen - NAD HEENT - anicteric CV - slightly bradycardic Resp - CTA anteriorly Abd - soft, BS+ Ext - R knee brace, no sig edema ICD10 Worksheet Patient Problems: Problems Problem Status Onset Altered mental status Acute Metastatic cancer to brain Acute Atrial fibrillation and flutter Acute Bladder tumor Acute Lightheadedness Acute Orthostatic hypotension Acute VRE (vancomycin-resistant Enterococci) Acute 08/04/15
[2016-09-24] MEDS ORDERED: POLYETHYLENE GLYCOL 3350 17 GM PKT PO PRN (13:39)
[2016-09-24] MEDS: CHOLECALCIFEROL VIT D3 1,000 UNITS TAB PO SCH (20:15)
[2016-09-25] MEDS: D5W 1/2 NS W/ 10 KCl/L 1,000 ML IV SCH ×2 (00:30→13:05)
[2016-09-25] MEDS: DEXAMETHASONE 4 MG/ML VIAL IVP SCH ×5 (00:39→23:44)
[2016-09-25] MEDS: PANTOPRAZOLE SODIUM 40 MG TAB PO SCH (08:23)
[2016-09-25] MEDS: ASCORBIC ACID 500 MG TAB PO SCH (08:23)
--- NOTE | 2016-09-25 11:39 | HOSPPROG ---
Hospitalist Progress Note Assessment/Plan: # weakness - suspect more related to brain mets - improving, cont PT/OT # bradycardia - sotolol held last night - check ECG, monitor on tele; discussed with Dr Quinones who will also see him # thrombocytopenia - recheck # e. coli/psa in urine, hx ileal conduit - currently on rocephin (not covering psa) - informal discussion with ID - likely represents colonization - hold abx, observe # hematuria - holding eliquis # bladder cancer, mets to bone and brain - brain irradiation tomorrow - dexamethasone IV - will consider changing to PO # paroxysmal a-fib: eliquis (ok'd by onc but on hold) and sotolol (on hold) # transaminitis: chronic Subjective: weakness continues to improve Objective: Vital Signs Temp Pulse Resp BP Pulse Ox 36.4 C 94 20 159/83 H 98 09/25/16 08:03 09/25/16 08:15 09/25/16 08:15 09/25/16 08:03 09/25/16 08:15 Laboratory Results 09/22/16 16:42 09/23/16 04:51 09/24/16 09/25/16 09/26/16 05:59 05:59 05:59 Intake Total 2662 3831 Output Total 3650 3050 450 Balance -988 781 -450 PT 15.4 SEC (12.0-15.0) H 09/21/16 14:05 INR 1.22 (0.83-1.16) H 09/21/16 14:05 ECG ordered discussed with Dr Quinones - Physical Exam Constitutional: no apparent distress, appears nourished Cardiovascular: no murmur, rub, or gallop, bradycardia Respiratory: no respiratory distress, no rales or rhonchi, clear to auscultation Gastrointestinal: normoactive bowel sounds, soft, non-tender abdomen, no palpable masses ICD10 Worksheet Patient Problems: Problems Problem Status Onset Altered mental status Acute Metastatic cancer to brain Acute Atrial fibrillation and flutter Acute Bladder tumor Acute Lightheadedness Acute Orthostatic hypotension Acute VRE (vancomycin-resistant Enterococci) Acute 08/04/15
--- NOTE | 2016-09-25 12:16 | SOAPPROG ---
SOAP Progress Note Assessment/Plan: Assessment/Plan: 66 yo man w Stage IV transitional cell ca who p/w weakness and increasing confusion MRI showed multiple enhancing lesions in brain (supra- and infratentorial) 1. Brain lesions - c/w metastatic dz from transitional cell ca (Stage III at diagnosis) had neoadj chemo followed by radical cystectomy/prostatectomy/lymph node dissection first line treatment for metastatic dz w carbo/taxol (mediastinal and supraclavicular nodes) completed in 05/2016 CT CAP in 06/[address] here shows ?new bone lesions BUT comparison made to 2016 scan; would restage at outpt Appreciate RadOnc - WBXRT to start tomorrow Cont on dex Will need repeat body imaging as outpt - PET preferred 2. UTI - holding abx; likely contamination w ileal conduit 3. Weakness - PT/OT 4. thrombocytopenia - unclear etiology, monitor, recheck CBC today mild hematuria from eliquis which has been held 5. Dispo - anticipate in next day - adjusting home meds, monitor on tele 09/25/16 12:16 Subjective: No acute events reports hematuria has improved denies new pain Objective: Vital Signs Temp Pulse Resp BP Pulse Ox 36.4 C 94 20 159/83 H 98 09/25/16 08:03 09/25/16 08:15 09/25/16 08:15 09/25/16 08:03 09/25/16 08:15 Laboratory Results 09/22/16 16:42 09/23/16 04:51 09/24/16 09/25/16 09/26/16 05:59 05:59 05:59 Intake Total 2662 3831 Output Total 3650 3050 450 Balance -988 781 -450 PT 15.4 SEC (12.0-15.0) H 09/21/16 14:05 INR 1.22 (0.83-1.16) H 09/21/16 14:05 Gen - NAD HEENT - anicteric CV - RRR Resp - CTAB Abd - soft, BS+ Ext - minimal edema bilaterally, R knee brace ICD10 Worksheet Patient Problems: Problems Problem Status Onset Altered mental status Acute Metastatic cancer to brain Acute Atrial fibrillation and flutter Acute Bladder tumor Acute Lightheadedness Acute Orthostatic hypotension Acute VRE (vancomycin-resistant Enterococci) Acute 08/04/15
[2016-09-25 12:20] LABS: % IMMATURE GRANULYOCYTES 0.7 % (0.0-1.1); ABSOLUTE IMMATURE GRANULOCYTES 0.06 10^3/uL (0.00-0.10); ADD DIFF? NO; ADD MORPH? NO; ADD SCAN? NO; ATYPICAL LYMPHOCYTE FLAG 0 (0-99); FRAGMENT RBC FLAG 0 (0-99); HEMATOCRIT 43.3 % (40.0-51.0); HEMOGLOBIN 14.7 g/dL (13.7-17.5); LEFT SHIFT FLG 10 (0-99); LIPEMIA HEMOLYSIS FLAG 90 (0-99); MEAN CELL HEMOGLOBIN 31.9 pg (27.9-34.1); MEAN CELL HEMOGLOBIN CONCENTR. 33.9 g/dL (32.4-36.7); MEAN CELL VOLUME 93.9 fL (81.5-99.8); MEAN PLATELET VOLUME 9.3 fL (8.7-11.7); PLATELET CLUMPS FLAG 0 (0-99); PLATELET COUNT 119 10^3/uL (150-400); RED BLOOD CELL COUNT 4.61 10^6/uL (4.40-6.38)
[2016-09-25 12:51] LABS: ANION GAP 8 mEq/L (8-16); CALCIUM 9.8 mg/dL (8.5-10.4); CARBON DIOXIDE 23 mEq/l (22-31); CHLORIDE 103 mEq/L (97-110); CREATININE 1.3 mg/dL (0.7-1.3); GLOMERULAR FILTRATION RATE 55; GLUCOSE 111 mg/dL (70-100); POTASSIUM 4.2 mEq/L (3.5-5.2); SODIUM 134 mEq/L (134-144)
--- NOTE | 2016-09-25 13:47 | CPEKG ---
Heart Rate: 65 RR Interval: 923 P-R Interval: 212 QRSD Interval: 94 QT Interval: 392 QTC Interval: 408 P [place]: 49 QRS [place]: -20 T Wave [place]: 61 EKG Severity - NORMAL ECG - EKG Impression: SINUS RHYTHM Electronically Signed By: Vinod Colon 25-Sep-2016 16:51:43
[2016-09-25] MEDS: CHOLECALCIFEROL VIT D3 1,000 UNITS TAB PO SCH (20:24)
[2016-09-26] MEDS: D5W 1/2 NS W/ 10 KCl/L 1,000 ML IV SCH (01:33)
[2016-09-26 04:24] VITALS: RESP 16
[2016-09-26 05:01] LABS: % IMMATURE GRANULYOCYTES 0.5 % (0.0-1.1); ABSOLUTE IMMATURE GRANULOCYTES 0.03 10^3/uL (0.00-0.10); ADD DIFF? NO; ADD MORPH? NO; ADD SCAN? NO; ATYPICAL LYMPHOCYTE FLAG 0 (0-99); FRAGMENT RBC FLAG 0 (0-99); HEMATOCRIT 40.4 % (40.0-51.0); HEMOGLOBIN 13.8 g/dL (13.7-17.5); LEFT SHIFT FLG 0 (0-99); LIPEMIA HEMOLYSIS FLAG 90 (0-99); MEAN CELL HEMOGLOBIN CONCENTR. 34.2 g/dL (32.4-36.7); MEAN CELL VOLUME 93.7 fL (81.5-99.8); MEAN PLATELET VOLUME 9.6 fL (8.7-11.7); PLATELET CLUMPS FLAG 0 (0-99); PLATELET COUNT 88 10^3/uL (150-400); RED BLOOD CELL COUNT 4.31 10^6/uL (4.40-6.38); RED CELL DISTRIBUTION WIDTH 12.8 % (11.5-15.2)
[2016-09-26 05:15] LABS: ANION GAP 7 mEq/L (8-16); CALCIUM 9.7 mg/dL (8.5-10.4); CARBON DIOXIDE 25 mEq/l (22-31); CHLORIDE 101 mEq/L (97-110); CREATININE 1.2 mg/dL (0.7-1.3); GLOMERULAR FILTRATION RATE > 60; GLUCOSE 126 mg/dL (70-100); POTASSIUM 4.5 mEq/L (3.5-5.2); SODIUM 133 mEq/L (134-144)
[2016-09-26] MEDS: DEXAMETHASONE 4 MG/ML VIAL IVP SCH ×2 (07:19→13:32)
[2016-09-26] MEDS: PANTOPRAZOLE SODIUM 40 MG TAB PO SCH (09:05)
[2016-09-26] MEDS: ASCORBIC ACID 500 MG TAB PO SCH (09:05)
--- NOTE | 2016-09-26 10:04 | PDIAF ---
- Diagnosis Diagnosis: Bladder Cancer Code Status: Full Code - Medication Management Discharge Medications: Medications to Continue on Transfer Apixaban [Eliquis] 5 mg PO BID 08/04/15 [Last Taken 09/20/16 21:00] Acetaminophen [Tylenol ES 500 mg (*)] 1,000 mg PO DAILY PRN 09/21/16 [Last Taken 09/21/16 03:30] Ascorbic Acid [Vitamin C 500 mg (*)] 500 mg PO DAILY 09/21/16 [Last Taken 08:00] Cholecalciferol Vit D3 [Vitamin D3 (*)] 1,000 units PO HS 09/21/16 [Last Taken 09/20/16 21:00] Dexamethasone 4 mg PO TID #90 tablet 09/26/16 [Last Taken Unknown] Pantoprazole Sodium [Protonix 40mg (*)] 40 mg PO DAILY #30 tab 09/26/16 [Last Taken Unknown] Discharge Medications: Refer to the Discharge Home Medication list for PRN reason. - Orders Services needed: Home Care, Registered Nurse, Certified Salesperson Handbags, Physical Therapy, Occupational Therapy Home Care Face to Face: I certify that this patient was under my care and that I had the required [id number] encounter meeting the encounter requirements on the discharge day. My findings support the fact that the patient is homebound as defined in CMS Chapter 7 Medicare Benefits Manual 30.1.1, The condition of the patient is such that there exists a normal inability to leave home and consequently, leaving home would require a considerable and taxing effort. Diet Texture: Regular Texture Diet [place]: Yes - Follow Up Care Current Providers and Referrals: Isidro Pat DO [Primary Care Provider] - As per Instructions
--- NOTE | 2016-09-26 11:43 | GDS ---
[f rep st] DISCHARGE SUMMARY DIAGNOSES: 1. Metastatic bladder cancer, brain metastases. 2. Bradycardia. 3. Thrombocytopenia. 4. History of a radical cystectomy with an ileal conduit. 5. Weakness. 6. Escherichia coli and Pseudomonas in urine. 7. Hematuria. 8. Paroxysmal atrial fibrillation. 9. Chronic transaminitis. HOSPITAL COURSE: 1. Weakness: Suspect that this is due to his newly diagnosed brain metastases. This has improved with steroids. Initial urinalysis also showed both E coli as well as Pseudomonas in his urine. He has an ileal conduit, so I suspect that this is more contamination. Procalcitonin was 0.14. I have held antibiotics for 3 days; it never targeted Pseudomonas. He has had improvement in his weakness . 2. Hematuria: He occasionally gets this. Held his Eliquis and this has resolved. Did not seem to be related to an infection. 3. Bradycardia: History of paroxysmal atrial fibrillation. Cardiology was consulted as he was on sotalol. Telemetry monitoring overnight showed some junctional beats. Per Dr. Wells, recommended ho lding sotalol and following up with Dr. Smith. This has been done. 4. Bladder cancer with metastases to bone and brain: Been started on steroids. I have discharged him on oral steroids. He is scheduled to start whole-brain radiation, which will start today. BILLING: I spent more than 30 minutes on the day of discharge coordinating care. FOLLOWUP: 1. Dr. Smith. 2. Dr. Jimenez. /[id number]/MODL
[2016-09-26 12:00] VITALS: BP 148/87; PULSE 56; TEMP 98.4; O2SAT 95
== END 2016-09-26 15:10 | disposition home health service (06) | DRG 54 ==
LOC: F1N 19:32 → F3E 09-25 16:30
PROVIDERS: ADMIT Internal Medicine; ATTEND Internal Medicine
DX: C79.31 Secondary malignant neoplasm of brain (principal); G93.6 Cerebral edema; R00.1 Bradycardia, unspecified; D69.6 Thrombocytopenia, unspecified; E83.52 Hypercalcemia; C77.9 Secondary and unspecified malignant neoplasm of lymph node, unspecified; C79.51 Secondary malignant neoplasm of bone; G47.33 Obstructive sleep apnea (adult) (pediatric); G62.0 Drug-induced polyneuropathy; I48.0 Paroxysmal atrial fibrillation; Z85.51 Personal history of malignant neoplasm of bladder; Z86.718 Personal history of other venous thrombosis and embolism; Z86.711 Personal history of pulmonary embolism; Z96.659 Presence of unspecified artificial knee joint; Z93.6 Other artificial openings of urinary tract status; Z79.01 Long term (current) use of anticoagulants
CPT/HCPCS: 96365; 97116-GP; 97161-GP; 97166-GO; 97530-GP; 97535-GO; A9585; G8978-GP-CL; G8979-GP-CI; G8987-GO-CJ; G8988-GO-CI; G8989-GO-CJ; J0696; J1100

== ENCOUNTER 2016-10-10 12:38 | Observation (INO) | payer OTHER, BC ==
--- NOTE | 2016-10-10 12:44 | EDPHY ---
HPI/HX/ROS/PE/MDM Narrative: CHIEF COMPLAINT: Chest pain HPI: The patient is a 66-year-old male with history of renal cell carcinoma with metastases, who presents with sudden onset of substernal chest pain while receiving radiation at the cancer center today. His pain lasted for about 30 minutes and resolved without intervention. The patient denied Aspirin during transport. Vitals in the field BP: 116/80, Pulse/l 80, O2: 97% on 2L. Patient has a urostomy bag in place. He reports hematuria for the past few days. No associated abdominal pain or urgency. REVIEW OF SYSTEMS: Aside from elements discussed in the HPI, a comprehensive 10-point review of systems was reviewed and is negative. PMH: Renal cell carcinoma with mets, Atrial fibrillation, DVT, PE, CPAP at night , LATOSHA, Cholecystectomy. SOCIAL HISTORY: . Retired. PHYSICAL EXAM: General: Patient is alert, in no acute distress. ENT: Eyes are normal to inspection. ENT inspection normal. Neck: Normal inspection. Full range of motion. Respiratory: No respiratory distress. Breath sounds normal bilaterally. Cardiovascular: Regular rate and rhythm. Strong peripheral pulses. Abdomen: The abdomen is nontender to palpation. There are no peritoneal signs. There are normal bowel sounds. Urostomy bag right lower quadrant with gross hematuria. Back: Normal to inspection. No tenderness to palpation. Skin: Normal color. No rash. Warm and dry. Extremities: Normal appearance. Full range of motion. Neuro: Oriented x3. Normal motor function. Normal sensory function. ED Course: Plan for cardiac workup including EKG, Chest x-ray, and lab work. UA ordered due to recent hematuria. EKG was ordered and interpreted by myself, sinus rhythm. Left axis deviation. Please see [employer] system for official reading. Chest x-ray is negative for acute findings. Troponin is negative. I spoke to the hospitalist, the patient will be admitted for further observation. MDM: This patient presents with severe chest pain that has since resolved. Given his risk factors, I think he requires further workup here in the hospital. He is compliant with Eliquis, so I do not think PE is likely. - Data Points Imaging Results: Imaging Impressions Chest X-Ray 10/10/16 12:48 Impression: Nothing acute identified. Stable left chest wall wall scarring. Imaging: Discussed imaging studies w/ call center coordinator Radiologist, I viewed and interpreted images myself Laboratory Results: Laboratory Results 10/10/16 12:49 10/10/16 12:50 10/10/16 10/10/16 10/10/16 13:00 12:50 12:50 WBC RBC Hgb Hct MCV MCH MCHC RDW Plt Count MPV Neut % (Auto) Lymph % (Auto) [place] % (Auto) Eos % (Auto) Baso % (Auto) Nucleat RBC Rel Count Absolute Neuts (auto) Absolute Lymphs (auto) Absolute Monos (auto) Absolute Eos (auto) Absolute Basos (auto) Absolute Nucleated RBC Immature Gran % Immature Gran # PT 13.9 SEC SEC (12.0-15.0) INR 1.08 (0.83-1.16) APTT 24.5 SEC SEC (23.0-38.0) Sodium 135 mEq/L mEq/L (134-144) Potassium 4.3 mEq/L mEq/L (3.5-5.2) Chloride 99 mEq/L mEq/L (97-110) Carbon Dioxide 26 mEq/l mEq/l (22-31) Anion Gap 10 mEq/L mEq/L (8-16) BUN 34 mg/dL H mg/dL (7-23) Creatinine 1.2 mg/dL mg/dL (0.7-1.3) Estimated GFR > 60 Glucose 83 mg/dL mg/dL (70-100) Calcium 9.7 mg/dL mg/dL (8.5-10.4) Troponin I < 0.012 ng/mL ng/mL (0-0.034) Urine Color RED Urine Appearance MODERATELY TURBID Urine pH 8.0 H (5.0-7.5) Ur Specific [place] 1.025 (1.002-1.030) Urine Protein 3+ H (NEGATIVE) Urine Ketones TRACE H (NEGATIVE) Urine Blood 2+ H (NEGATIVE) Urine Nitrate NEGATIVE (NEGATIVE) Urine Bilirubin NEGATIVE (NEGATIVE) Urine Urobilinogen NEGATIVE EU EU (0.2-1.0) Ur Leukocyte Esterase 1+ H (NEGATIVE) Urine RBC 50-182 /hpf H /hpf (0-3) Urine WBC 50-182 /hpf H /hpf (0-3) Ur Epithelial Cells Not Reported Urine Bacteria 4+ /hpf H /hpf (NONE SEEN) Urine Mucus 4+ /lpf H /lpf (NONE-1+) Urine Glucose NEGATIVE (NEGATIVE) 06/29/17 12:49 WBC 8.40 10^3/uL 10^3/uL (3.80-9.50) RBC 4.77 10^6/uL 10^6/uL (4.40-6.38) Hgb 15.2 g/dL g/dL (13.7-17.5) Hct 45.2 % % (40.0-51.0) MCV 94.8 fL fL (81.5-99.8) MCH 31.9 pg pg (27.9-34.1) MCHC 33.6 g/dL g/dL (32.4-36.7) RDW 12.9 % % (11.5-15.2) Plt Count 96 10^3/uL L 10^3/uL (150-400) MPV 9.7 fL fL (8.7-11.7) Neut % (Auto) 89.7 % H % (39.3-74.2) Lymph % (Auto) 3.7 % L % (15.0-45.0) [place] % (Auto) 5.4 % % (4.5-13.0) Eos % (Auto) 0.1 % L % (0.6-7.6) Baso % (Auto) 0.0 % L % (0.3-1.7) Nucleat RBC Rel Count 0.0 % % (0.0-0.2) Absolute Neuts (auto) 7.54 10^3/uL H 10^3/uL (1.70-6.50) Absolute Lymphs (auto) 0.31 10^3/uL L 10^3/uL (1.00-3.00) Absolute Monos (auto) 0.45 10^3/uL 10^3/uL (0.30-0.80) Absolute Eos (auto) 0.01 10^3/uL L 10^3/uL (0.03-0.40) Absolute Basos (auto) 0.00 10^3/uL L 10^3/uL (0.02-0.10) Absolute Nucleated RBC 0.00 10^3/uL 10^3/uL (0-0.01) Immature Gran % 1.1 % % (0.0-1.1) Immature Gran # 0.09 10^3/uL 10^3/uL (0.00-0.10) PT INR APTT Sodium Potassium Chloride Carbon Dioxide Anion Gap BUN Creatinine Estimated GFR Glucose Calcium Troponin I Urine Color Urine Appearance Urine pH Ur Specific [place] Urine Protein Urine Ketones Urine Blood Urine Nitrate Urine Bilirubin Urine Urobilinogen Ur Leukocyte Esterase Urine RBC Urine WBC Ur Epithelial Cells Urine Bacteria Urine Mucus Urine Glucose General Initial Vital Signs: Initial Vital Signs Temperature (C) 36.6 C 10/10/16 12:46 Heart Rate 74 10/10/16 12:46 Respiratory Rate 16 10/10/16 12:46 Blood Pressure 137/86 H 10/10/16 12:46 O2 Sat (%) 94 10/10/16 12:46 O2 Delivery Mode Nasal Cannula O2 (L/minute) 2 Allergies/Adverse Reactions: POISON [place]AK Allergy (Severe, Uncoded 10/03/16 11:10) Other-Enter Comments SALMON Allergy (Intermediate, Uncoded 10/03/16 11:10) Vomiting SUPER GLUE Allergy (Uncoded 10/03/16 11:10) Home Medications: Medication Instructions Recorded Apixaban [Eliquis] 5 mg PO BID 08/04/15 Cholecalciferol Vit D3 [Vitamin D3 1,000 units PO HS 09/21/16 (*)] Pantoprazole Sodium [Protonix 40mg 40 mg PO DAILY #30 tab 09/26/16 (*)] Dexamethasone 4 mg PO BID 10/10/16 Gabapentin [Neurontin 100 MG (*)] 100 mg PO HS 10/10/16 Departure - Departure Disposition: [facility] Inpatient Acute Clinical Impression: Chest pain Qualifiers: Chest pain type: unspecified Qualified Code(s): R07.9 - Chest pain, unspecified Condition: Fair Report Scribed for: Nikhil Mcconnell Report Scribed by: Lavinia Dorado Date of Report: 10/10/16 Time of Report: 12:44 Physician Review and Approval Statement: Portions of this note were transcribed by a medical health researcher. I personally performed a history, physical exam, medical decision making, and confirmed accuracy of information the transcribed note.
--- NOTE | 2016-10-10 12:48 | CPEKG ---
Heart Rate: 76 RR Interval: 789 P-R Interval: 200 QRSD Interval: 90 QT Interval: 364 QTC Interval: 410 P [place]: 41 QRS [place]: -35 T Wave [place]: 43 EKG Severity - OTHERWISE NORMAL ECG - EKG Impression: SINUS RHYTHM EKG Impression: LEFT AXIS DEVIATION Electronically Signed By: Isidro Man 11-Oct-2016 09:05:24
[2016-10-10 12:53] LABS: % IMMATURE GRANULYOCYTES 1.1 % (0.0-1.1); ABSOLUTE IMMATURE GRANULOCYTES 0.09 10^3/uL (0.00-0.10); ADD DIFF? NO; ADD MORPH? NO; ADD SCAN? NO; ATYPICAL LYMPHOCYTE FLAG 0 (0-99); FRAGMENT RBC FLAG 30 (0-99); HEMATOCRIT 45.2 % (40.0-51.0); HEMOGLOBIN 15.2 g/dL (13.7-17.5); LEFT SHIFT FLG 10 (0-99); LIPEMIA HEMOLYSIS FLAG 80 (0-99); MEAN CELL HEMOGLOBIN 31.9 pg (27.9-34.1); MEAN CELL HEMOGLOBIN CONCENTR. 33.6 g/dL (32.4-36.7); MEAN CELL VOLUME 94.8 fL (81.5-99.8); MEAN PLATELET VOLUME 9.7 fL (8.7-11.7); PLATELET CLUMPS FLAG 0 (0-99); PLATELET COUNT 96 10^3/uL (150-400); RED BLOOD CELL COUNT 4.77 10^6/uL (4.40-6.38); RED CELL DISTRIBUTION WIDTH 12.9 % (11.5-15.2)
[2016-10-10 13:03] LABS: ANION GAP 10 mEq/L (8-16); CALCIUM 9.7 mg/dL (8.5-10.4); CARBON DIOXIDE 26 mEq/l (22-31); CHLORIDE 99 mEq/L (97-110); CREATININE 1.2 mg/dL (0.7-1.3); GLOMERULAR FILTRATION RATE > 60; GLUCOSE 83 mg/dL (70-100); POTASSIUM 4.3 mEq/L (3.5-5.2); SODIUM 135 mEq/L (134-144)
[2016-10-10 13:07] LABS: INR 1.08 (0.83-1.16); PROTIME(PATIENT) 13.9 SEC (12.0-15.0)
[2016-10-10 13:08] LABS: APTT 24.5 SEC (23.0-38.0)
[2016-10-10 13:13] LABS: COLOR RED; LEUKOCYTE ESTERASE,URINE 1+ (NEGATIVE); NITRITE,URINE NEGATIVE (NEGATIVE)
[2016-10-10 13:14] LABS: TROPONIN I < 0.012 ng/mL (0-0.034)
[2016-10-10 13:17] LABS: BACTERIA 4+ /hpf (NONE SEEN); MUCUS 4+ /lpf (NONE-1+); RBC,URINE 50-182 /hpf (0-3); WBC,URINE 50-182 /hpf (0-3)
[2016-10-10] MEDS ORDERED: ONDANSETRON 4 MG/2 ML VIAL IVP PRN (16:50)
[2016-10-10] MEDS ORDERED: HYDROCODONE/APAP 5/325 TAB PO PRN (16:50)
[2016-10-10] MEDS ORDERED: ACETAMINOPHEN 325 MG TAB PO PRN (16:50)
[2016-10-10] MEDS ORDERED: ONDANSETRON DISINTEGRATING 4 MG TAB PO PRN (16:50)
--- NOTE | 2016-10-10 17:00 | PDGENHP ---
History and Physical - Chief Complaint chest pain - History of Present Illness 66 y male with hx of Bladder cancer admitted for substernal chest pain following radiation therapy today. The pt had 20 mins of chest pain. Did not radiate anywhere. No diaphoresis. No shortness of breath, palpitations, or other. NO EKG changes. Unremarkable troponin. Has not had CP since. NO CP currently. Afebrile. PMHx, PSHx: bladder cancer, bladder removed May 2015, Urostomy, Afib, chronic AC, Right Leg DVT, P.E., LATOSHA, Peripheral neuropathy, total knee replacement 2014, cholecystectomy, appendectomy Soc: No tobacco, occasional ETOH, lives with family FmHx: reviewed History Information - Allergies/Home Medication List Allergies/Adverse Reactions: POISON OAK Allergy (Severe, Uncoded 10/03/16 11:10) Other-Enter Comments SALMON Allergy (Intermediate, Uncoded 10/03/16 11:10) Vomiting SUPER GLUE Allergy (Uncoded 10/03/16 11:10) Home Medications: Apixaban [Eliquis] 5 mg PO BID 08/04/15 [Last Taken 10/10/16] Cholecalciferol Vit D3 [Vitamin D3 (*)] 1,000 units PO HS 09/21/16 [Last Taken 10/09/16] Dexamethasone 4 mg PO BID 10/10/16 [Last Taken 10/10/16] Gabapentin [Neurontin 100 MG (*)] 100 mg PO HS 10/10/16 [Last Taken 10/09/16] I have personally reviewed and updated: medical history, social history - Social History Smoking Status: Never smoked Review of Systems ROS: 10pt was reviewed & negative except for what was stated in HPI & below Physical Exam Temp Pulse Resp BP Pulse Ox 36.6 C 71 14 140/81 H 94 10/10/16 15:15 10/10/16 15:15 10/10/16 15:15 10/10/16 15:15 10/10/16 15:15 Constitutional: no apparent distress, appears nourished, not in pain Eyes: PERRL, anicteric sclera, EOMI Ears, Nose, Mouth, Throat: moist mucous membranes, hearing normal, ears appear normal, no oral mucosal ulcers Cardiovascular: regular rate and rhythym, no murmur, rub, or gallop, No edema Respiratory: no respiratory distress Gastrointestinal: other (obese) Skin: warm Neurologic: AAOx3, CN II-XII Intact Psychiatric: interacting appropriately, not anxious, not encephalopathic Lymph, Heme, Immunologic: no cervical LAD Lab Data & Imaging Review 10/10/16 12:49 10/10/16 12:50 WBC 8.40 10^3/uL (3.80-9.50) 10/10/16 12:49 RBC 4.77 10^6/uL (4.40-6.38) 10/10/16 12:49 Hgb 15.2 g/dL (13.7-17.5) 10/10/16 12:49 Hct 45.2 % (40.0-51.0) 10/10/16 12:49 MCV 94.8 fL (81.5-99.8) 10/10/16 12:49 MCH 31.9 pg (27.9-34.1) 10/10/16 12:49 MCHC 33.6 g/dL (32.4-36.7) 10/10/16 12:49 RDW 12.9 % (11.5-15.2) 10/10/16 12:49 Plt Count 96 10^3/uL (150-400) L 10/10/16 12:49 MPV 9.7 fL (8.7-11.7) 10/10/16 12:49 Neut % (Auto) 89.7 % (39.3-74.2) H 10/10/16 12:49 Lymph % (Auto) 3.7 % (15.0-45.0) L 10/10/16 12:49 [place] % (Auto) 5.4 % (4.5-13.0) 10/10/16 12:49 Eos % (Auto) 0.1 % (0.6-7.6) L 10/10/16 12:49 Baso % (Auto) 0.0 % (0.3-1.7) L 10/10/16 12:49 Nucleat RBC Rel Count 0.0 % (0.0-0.2) 10/10/16 12:49 Absolute Neuts (auto) 7.54 10^3/uL (1.70-6.50) H 10/10/16 12:49 Absolute Lymphs (auto) 0.31 10^3/uL (1.00-3.00) L 10/10/16 12:49 Absolute Monos (auto) 0.45 10^3/uL (0.30-0.80) 10/10/16 12:49 Absolute Eos (auto) 0.01 10^3/uL (0.03-0.40) L 10/10/16 12:49 Absolute Basos (auto) 0.00 10^3/uL (0.02-0.10) L 10/10/16 12:49 Absolute Nucleated RBC 0.00 10^3/uL (0-0.01) 10/10/16 12:49 Immature Gran % 1.1 % (0.0-1.1) 10/10/16 12:49 Immature Gran # 0.09 10^3/uL (0.00-0.10) 10/10/16 12:49 PT 13.9 SEC (12.0-15.0) 10/10/16 12:50 INR 1.08 (0.83-1.16) 10/10/16 12:50 APTT 24.5 SEC (23.0-38.0) 10/10/16 12:50 Sodium 135 mEq/L (134-144) 10/10/16 12:50 Potassium 4.3 mEq/L (3.5-5.2) 10/10/16 12:50 Chloride 99 mEq/L (97-110) 10/10/16 12:50 Carbon Dioxide 26 mEq/l (22-31) 10/10/16 12:50 Anion Gap 10 mEq/L (8-16) 10/10/16 12:50 BUN 34 mg/dL (7-23) H 10/10/16 12:50 Creatinine 1.2 mg/dL (0.7-1.3) 10/10/16 12:50 Estimated GFR > 60 10/10/16 12:50 Glucose 83 mg/dL (70-100) 10/10/16 12:50 Calcium 9.7 mg/dL (8.5-10.4) 10/10/16 12:50 Troponin I < 0.012 ng/mL (0-0.034) 10/10/16 12:50 Urine Color RED 10/10/16 13:00 Urine Appearance MODERATELY TURBID 10/10/16 13:00 Urine pH 8.0 (5.0-7.5) H 10/10/16 13:00 Ur Specific [place] 1.025 (1.002-1.030) 10/10/16 13:00 Urine Protein 3+ (NEGATIVE) H 10/10/16 13:00 Urine Ketones TRACE (NEGATIVE) H 10/10/16 13:00 Urine Blood 2+ (NEGATIVE) H 10/10/16 13:00 Urine Nitrate NEGATIVE (NEGATIVE) 10/10/16 13:00 Urine Bilirubin NEGATIVE (NEGATIVE) 10/10/16 13:00 Urine Urobilinogen NEGATIVE EU (0.2-1.0) 10/10/16 13:00 Ur Leukocyte Esterase 1+ (NEGATIVE) H 10/10/16 13:00 Urine RBC 50-182 /hpf (0-3) H 10/10/16 13:00 Urine WBC 50-182 /hpf (0-3) H 10/10/16 13:00 Ur Epithelial Cells Not Reported 10/10/16 13:00 Urine Bacteria 4+ /hpf (NONE SEEN) H 10/10/16 13:00 Urine Mucus 4+ /lpf (NONE-1+) H 10/10/16 13:00 Urine Glucose NEGATIVE (NEGATIVE) 10/10/16 13:00 Assessment & Plan Assessment: #Likely Atypical chest pain #Bladder Cancer with mets to brain #Hx of Afib on chronic AC on Eliquis. In SR. EKG personally reviewed #Intermittent Bradycardia #Urostomy #LATOSHA, on CPAP #Chronic Transaminitis Plan: Admit for chest pain r/o EKG Trops TTE Home meds cont AC Full code
[2016-10-10] MEDS: DEXAMETHASONE 4 MG TAB PO SCH (20:24)
[2016-10-10] MEDS: APIXABAN 5 MG TAB PO SCH (20:24)
[2016-10-10] MEDS ORDERED: GABAPENTIN 100 MG CAP PO SCH (21:00)
[2016-10-10] MEDS ORDERED: CHOLECALCIFEROL VIT D3 1,000 UNITS TAB PO SCH (21:00)
[2016-10-11 05:04] LABS: ANION GAP 6 mEq/L (8-16); CALCIUM 9.7 mg/dL (8.5-10.4); CARBON DIOXIDE 25 mEq/l (22-31); CHLORIDE 102 mEq/L (97-110); CREATININE 1.1 mg/dL (0.7-1.3); GLOMERULAR FILTRATION RATE > 60; GLUCOSE 110 mg/dL (70-100); POTASSIUM 4.5 mEq/L (3.5-5.2); SODIUM 133 mEq/L (134-144)
[2016-10-11 05:11] LABS: TROPONIN I < 0.012 ng/mL (0-0.034)
--- NOTE | 2016-10-11 08:55 | CPEKG ---
Heart Rate: 54 RR Interval: 1111 P-R Interval: 208 QRSD Interval: 98 QT Interval: 404 QTC Interval: 383 P [place]: 32 QRS [place]: 12 T Wave [place]: 28 EKG Severity - OTHERWISE NORMAL ECG - EKG Impression: SINUS RHYTHM EKG Impression: VENTRICULAR PREMATURE COMPLEX Electronically Signed By: Isidro Man 11-Oct-2016 11:40:50
[2016-10-11] MEDS ORDERED: NS 1,000 ML IV SCH (09:00)
[2016-10-11] MEDS ORDERED: PANTOPRAZOLE SODIUM 40 MG TAB PO SCH (09:00)
[2016-10-11] MEDS: APIXABAN 5 MG TAB PO SCH (09:16)
[2016-10-11] MEDS: DEXAMETHASONE 4 MG TAB PO SCH (09:16)
--- NOTE | 2016-10-11 11:24 | ECHO ---
[id number] + + [address] : : [place] [address] : : [phone] + + Adult Echocardiographic Report + -----+ :Name: BEAU ORTIZ LStudy Date: 10/11/2016 08:04 AM BP: 142/87 mmHg : : Hospital Admission Number: [id number] Location : 205: :: 1950 Gender: Male Height: 78 in : :Age: 66 yrs Race: WH,White Weight: 266 lb : :Reason For Study: chest pain : : BSA: 2.5 meters2 : :History: chest pain : + -----+ MMode/2D Measurements \T\ Calculations IVSd: 1.5 cm LVIDd: 4.7 cm FS: 39.1 % Ao root diam: LVPWd: 1.0 cm LVIDs: 2.9 cm EDV(Teich): 4.4 cm 102.0 ml ESV(Teich): 31.1 ml EF(Teich): 69.5 % LVLd ap4: 10.4 cm SV(MOD-sp4): EDV(MOD-sp4): 164.0 ml 245.0 ml LVLs ap4: 8.7 cm ESV(MOD-sp4): 81.0 ml EF(MOD-sp4): 66.9 % Normal Measurement Values: + + :LVIDd (3.5-5.7cm) IVSd (0.6-1.1cm) LVPWd (0.6-1.1cm) Aortic Root (2.0-3.7cm)Left Atrium (1.5-4.0cm): :LV Vol(d) (76-115ml) LV Vol(s) (29-48ml) Ejec Fraction (50-65%)PV Ronaldo (0.6- 1.2m/s) TV Ronaldo (0.4-1.0m/s) : :MV E Ronaldo (0.8-1.0m/s)MV A Ronaldo (0.3-1.0m/s)LVOT Ronaldo (0.7-1.2m/s) Asc Ao Ronaldo ( 0.9-1.8m/s) : + + Doppler Measurements \T\ Calculations MV E max ronaldo: Ao V2 max: LV V1 max: PA V2 max: 54.3 cm/sec 124.9 cm/sec 92.2 cm/sec 63.0 cm/sec MV A max ronaldo: Ao max P.2 mmHg LV V1 max PG: PA max P.1 cm/sec 3.4 mmHg 1.6 mmHg MV E/A: 0.79 MV dec time: 0.36 sec Left Ventricle The left ventricle is normal in size and function. There is mild concentric left ventricular hypertrophy. Ejection Fraction = 65-70%. There is Doppler evidence for diastolic dysfunction. No regional wall motion abnormalities noted. Right Ventricle The right ventricle is normal in size and function. Atria The left atrium is mildly dilated. The Left Atrial Volume is 39 ml/m2. Right atrial size is normal. Known PFO from previous MIKEY but not appreciated on this exam. Mitral Valve The mitral valve is normal in structure and function. There is no mitral valve stenosis. There is trace mitral regurgitation. Tricuspid Valve The tricuspid valve is normal in structure and function. There is no tricuspid stenosis. No tricuspid regurgitation. Aortic Valve The aortic valve is trileaflet. There is no aortic stenosis. Trace to mild aortic regurgitation. Pulmonic Valve The pulmonic valve is not well visualized. Great Vessels Mild aortic root dilatation. Pericardium/Pleural trivial pericardial effusion. Conclusion A two-dimensional transthoracic echocardiogram with M-mode and Doppler was performed. The rhythm is NSR with PVC's. The left ventricle is normal in size and function. There is mild concentric left ventricular hypertrophy. Ejection Fraction = 65-70%. There is Doppler evidence for diastolic dysfunction. The left atrium is mildly dilated. The Left Atrial Volume is 39 ml/m2. Normal appearing cardiac valves. There is trace mitral regurgitation. Trace to mild aortic regurgitation. Mild aortic root dilatation. Trivial pericardial effusion. Final Reading Physician: Remberto Abraham signed on 10/11/2016 11:22 AM Ordering Physician: Surinder Fine Performed By: Nhung Sparrow
[2016-10-11 13:21] VITALS: BP 127/78; PULSE 53; RESP 16; TEMP 97.7; O2SAT 95
--- NOTE | 2016-10-11 13:21 | PDDCSUM ---
Discharge Summary Discharge Summary: DISCHARGE DIAGNOSES: -chest pain, resolved -ruled out myocardial infarction -metastatic renal cell carcinoma PROCEDURES: Echocardiogram which was unremarkable HOSPITAL COURSE SUMMARY: This patient presented to the hospital with an episode of chest pain that occurred just after finishing a radiation treatment. This was a sharp pain in the center of the chest without any accompanying symptoms. It gradually faded without any specific treatment. He was assessed in the ER with stable vital signs no sign of heart failure normal EKG and 1st normal troponin. He was observed on medical care administrator unit overnight where he had no further problems with any symptoms and had 2 further negative troponins and sinus rhythm on monitor. No heart failure developed and he has had no recurrent symptoms. He has had no fevers no cough. He is eating well. Echocardiogram showed normal ejection fraction no wall motion abnormalities and no other significant changes. Chest x-ray was unremarkable. At this time the patient is up walking in the hallway normally, eating well and has no heart failure on exam. The original intention had been to do a Lexiscan nuclear stress test. However the patient had a large cup of coffee this morning. At this point after review with Dr. Smith will discharge the patient home and Dr. Smith is arranging for him to have an outpatient Lexiscan stress testing within the next few days. Patient is advised to have a low level of activity in the intervening time. MEDICATION CHANGES: None FOLLOW-UP PLAN: Outpatient Lexiscan stress test with Dr. Smith next few days Greater than 35 minutes bedside and care coordination time today
== END 2016-10-11 15:04 | disposition home or self-care (01) ==
LOC: EDUNIT# → F2W 15:04
PROVIDERS: ADMIT Family Medicine; ATTEND Family Medicine
DX: R07.9 Chest pain, unspecified (principal); C79.00 Secondary malignant neoplasm of unspecified kidney and renal pelvis; Z85.51 Personal history of malignant neoplasm of bladder
CPT/HCPCS: 71020; 93005; 93306; 99285; G0378

== ENCOUNTER 2016-10-16 10:01 | Day surgery (SDC) | payer OTHER, BC ==
[2016-10-16] MEDS ORDERED: IOPAMIDOL (ISOVUE-300) 100 ML BTL ONE (10:48)
== END 2016-10-16 18:00 | disposition home or self-care (01) ==
LOC: FIMAGING 10:01
PROVIDERS: ATTEND Specialist
PROC: 0T29X0Z Change Drainage Device in Ureter, External Approach (ICD-10-PCS; principal; 2016-10-16)
DX: Z43.6 Encounter for attention to other artificial openings of urinary tract (principal); C67.9 Malignant neoplasm of bladder, unspecified; C79.51 Secondary malignant neoplasm of bone; C79.31 Secondary malignant neoplasm of brain
CPT/HCPCS: 50688; C1729; C1769; J0696; J1644; Q9967

== ENCOUNTER → 2016-10-16 | Outpatient (CLI) | payer OTHER, BC | LOC: BHFA 13:30 | PROVIDERS: ATTEND Internal Medicine Interventional Cardiology | DX: R07.9 Chest pain, unspecified (principal) | CPT/HCPCS: 78452; 93017; A9500; J2785; C1729; C1769; J0696; J1644; Q9967 ==

== ENCOUNTER → 2016-10-23 | Outpatient (CLI) | payer OTHER, BC | LOC: BHFA 11:00 | PROVIDERS: ATTEND Internal Medicine Cardiovascular Disease | DX: I48.91 Unspecified atrial fibrillation (principal); E78.5 Hyperlipidemia, unspecified; Z79.2 Long term (current) use of antibiotics; I71.2 Thoracic aortic aneurysm, without rupture ==

== ENCOUNTER → 2017-01-21 | Day surgery (SDC) | payer OTHER, BC ==
[~2017-01-21] MED LIST changes: -IOPAMIDOL (ISOVUE-300) 100 ML BTL IV ONE; +IOPAMIDOL (ISOVUE-300) 100 ML BTL ONE
== END | disposition home or self-care (01) ==
LOC: FIMAGING 09:12
PROVIDERS: ATTEND Specialist
DX: Z43.6 Encounter for attention to other artificial openings of urinary tract (principal); N13.9 Obstructive and reflux uropathy, unspecified
CPT/HCPCS: 50385; C1729; C1769; J0696; J1642; J1644; Q9967

== ENCOUNTER → 2017-02-10 | Outpatient (CLI) | payer OTHER, BC | LOC: FIMAGING 11:04 | PROVIDERS: ATTEND Internal Medicine Hematology & Oncology | PROC: CP1Z1ZZ Planar Nuclear Medicine Imaging of Musculoskeletal System, All using Technetium 99m (Tc-99m) (ICD-10-PCS; principal; 2017-02-10) | DX: S22.41XA Multiple fractures of ribs, right side, initial encounter for closed fracture (principal); C67.9 Malignant neoplasm of bladder, unspecified | CPT/HCPCS: 71101; 78306; A9503 ==

== ENCOUNTER → 2017-04-18 | Outpatient (CLI) | payer OTHER, BC | LOC: FIMAGING 09:42 | PROVIDERS: ATTEND Internal Medicine Hematology & Oncology | DX: Z98.890 Other specified postprocedural states (principal); N13.30 Unspecified hydronephrosis; Z85.51 Personal history of malignant neoplasm of bladder ==

== ENCOUNTER → 2017-04-21 | Day surgery (SDC) | payer OTHER, BC ==
[~2017-04-21] MED LIST changes: +ACETAMINOPHEN 325 MG TAB PO PRN; +ONDANSETRON 4 MG/2 ML VIAL IVP PRN; +diphenhydrAMINE 25 MG CAP PO ONE; +diphenhydrAMINE 50 MG CAP PO ONE
--- NOTE | 2017-04-21 13:04 | PDRADPN ---
Radiology Procedure Note Date of Procedure: 04/21/17 Radiologist: Aaron Weiner
== END | disposition home or self-care (01) ==
LOC: FIMAGING 08:59
PROVIDERS: ATTEND Specialist
PROC: 0T787DZ Dilation of Bilateral Ureters with Intraluminal Device, Via Natural or Artificial Opening (ICD-10-PCS; principal; 2017-04-21)
DX: N13.8 Other obstructive and reflux uropathy (principal)
CPT/HCPCS: 50693; 75984; C1729; C1758; C1769; C1894; J0696; J1642; J1644; Q9967

== ENCOUNTER → 2017-06-05 | Day surgery (SDC) | payer OTHER ==
[~2017-06-05] MED LIST changes: -ACETAMINOPHEN 325 MG TAB PO PRN; +NS 1,000 ML IV SCH; -ONDANSETRON 4 MG/2 ML VIAL IVP PRN; -diphenhydrAMINE 50 MG CAP PO ONE
--- NOTE | 2017-06-06 11:08 | PDRADPN ---
Radiology Procedure Note Date of Procedure: 06/06/17 Radiologist: Aaron Weiner Pre-op Diagnosis: Bilateral ureteral obstruction Post-op Diagnosis: Same Indication: Right hydronephrosis Procedure: Bilateral ureteral stent exchange Finding(s): See dictated report Inf/Abcess present in the surg proc area at time of surgery?: No Total fluids administered: ~500 mL NS Complications: No immediate Drains: Other (10-Fr x 50 cm nephrostomy tubes/ureteral stents)
== END | disposition home or self-care (01) ==
LOC: FIMAGING 14:01
PROVIDERS: ATTEND Radiology Diagnostic Radiology
DX: N13.1 Hydronephrosis with ureteral stricture, not elsewhere classified (principal)
CPT/HCPCS: 50382; 75984; C1729; C1769; J0696; J1644; Q9967

== ENCOUNTER → 2017-06-24 | Outpatient (CLI) | payer OTHER, BC | LOC: FIMAGING 14:47 | PROVIDERS: ATTEND Internal Medicine Hematology & Oncology | DX: C67.4 Malignant neoplasm of posterior wall of bladder (principal) ==

== ENCOUNTER → 2017-08-06 | Day surgery (SDC) | payer OTHER, BC ==
[~2017-08-06] MED LIST changes: +ERTAPENEM 1 GM VIAL IV ONE; -NS 1,000 ML IV SCH; -diphenhydrAMINE 25 MG CAP PO ONE
== END | disposition home or self-care (01) ==
LOC: FIMAGING 08:00
PROVIDERS: ATTEND Radiology Diagnostic Radiology
DX: Z43.6 Encounter for attention to other artificial openings of urinary tract (principal); N13.9 Obstructive and reflux uropathy, unspecified
CPT/HCPCS: 50387; 75984; C1729; C1769; J1335; Q9967

== ENCOUNTER 2017-08-19 11:07 | Inpatient (IN) | payer OTHER, BC ==
[2017-08-19] MEDS ORDERED: NS 1,000 ML IV ONE ×2 (12:14)
--- NOTE | 2017-08-19 12:18 | EDPHY ---
H & P Stated Complaint: Diarrhea continues x 4 days--on lomotil n flagyl etc Time Seen by Provider: 08/19/17 12:15 HPI/ROS: HPI: This is a 67-year-old male who presents with Chief Complaint: Diarrhea continues x 4 days--on lomotil n flagyl etc Location: GI Quality: Diarrhea Duration: 4 days Signs and Symptoms: no fever, +nausea, no vomiting, no hematemesis, no blood in stool, no abdominal bloating, + diarrhea, no back pain, no urinary symptoms, no testicular/groin pain, no indigestion, no chest pain, no shortness of breath Timing: Acute Severity: Moderate to severe Context: Patient reports that he had sudden onset of loose stool approximately 10-20 times per day for the last 4 days. He denies any hematemesis or blood in his stool. Patient has a history of bladder cancer that is in remission status post urostomy. Very poor oral intake. Patient was seen at [facility] on Friday was laboratory workup and CT scan as well as stool studies that grew C diff. Patient was given IV fluids, prescription for Flagyl and Lomotil. Since taking the Flagyl and Lomotil prescription his symptoms have actually worsened and now he is using the restroom every 20 min to 1 hr. Sent over by primary care provider concerns of sepsis and dehydration requiring admission. reports significant weight loss of 8 lb over the last 4 days. Modifying Factors: See above Comment: ROS: see HPI Constitutional: No fever, no chills, no weight loss Eyes: No blurred vision Respiratory: No shortness of breath, no cough Cardiovascular: No chest pain, no palpitations Gastrointestinal: + nausea, no vomiting, + diarrhea, no hematemesis, no blood in stool Genitourinary: No dysuria, no blood in urine Extremities: No myalgias, no edema Neurologic: No weakness, no numbness Skin: No rashes, no petechiae Hematologic: No bruising, no bleeding MEDICAL/SURGICAL/SOCIAL HISTORY: Medical/surgical history: Bladder cancer in remission. afib, dvt, pe, cpap at [facility] for LATOSHA, bladder CA w/mets, knee surgery, shoulder surgery, gallbladder removal, kidney stents 07/30, appendectomy, urostomy Social history: Family history noncontributory. CONSTITUTIONAL: Chronically ill-appearing tall stature white male, at bedside, awake and alert, no obvious distress HEENT: Atraumatic and normocephalic, PERRL, EOMI. Nares patent; no rhinorrhea; no nasal mucosal edema. Tympanic membranes clear. Oropharynx clear, no exudate and moist pink mucosa. Airway patent. No lymphadenopathy. No meningismus. Cardiovascular: Normal S1/S2, regular rate, regular rhythm, without murmur rub or gallop. PULMONARY/CHEST: Symmetrical and nontender. Clear to auscultation bilaterally. Good air movement. No accessory muscle usage. ABDOMEN: Soft, nondistended, nontender, no rebound, no guarding, no peritoneal signs, no masses or organomegaly. No CVAT. Hyperactive bowel sounds. Urostomy bag present with dark brownish urine. EXTREMITIES: 2/2 pulses, strength 5/5, no deformities, no clubbing, no cyanosis or edema. NEUROLOGICAL: no focal neuro deficits. GCS 15. SKIN: Warm and dry, no erythema. no rash. Good capillary refill. Source: Patient, Family () Exam Limitations: No limitations - Personal History Current Tetanus/Diphtheria Vaccine: No Current Tetanus Diphtheria and Acellular Pertussis (TDAP): No Tetanus Vaccine Date: 2012 - Medical/Surgical History Hx Asthma: No Hx Chronic Respiratory Disease: No Hx Diabetes: No Hx Cardiac Disease: Yes Hx Renal Disease: No Hx Cirrhosis: No Hx Alcoholism: No Hx HIV/AIDS: No Hx Splenectomy or Spleen Trauma: No Other PMH: afib, dvt, pe, cpap at [facility] for LATOSHA, bladder CA w/mets, knee surgery , shoulder surgery, gallbladder removal, kidney stents 07/30 - Social History Smoking Status: Never smoked Constitutional: Initial Vital Signs Temperature (C) 36.5 C 08/19/17 11:13 Heart Rate 91 08/19/17 11:13 Respiratory Rate 16 08/19/17 11:13 Blood Pressure 95/62 L 08/19/17 11:13 O2 Sat (%) 92 08/19/17 11:13 O2 Delivery Mode Room Air Allergies/Adverse Reactions: ceftriaxone [From Rocephin] Allergy (Intermediate, Verified 06/06/17 10:29) Swelling/neck,face,throat POISON OAK Allergy (Severe, Uncoded 10/03/16 11:10) Other-Enter Comments SALMON Allergy (Intermediate, Uncoded 10/03/16 11:10) Vomiting SUPER GLUE Allergy (Uncoded 10/03/16 11:10) Home Medications: Medication Instructions Recorded Cholecalciferol Vit D3 [Vitamin D3 1,000 units PO HS 09/21/16 (*)] Gabapentin [Neurontin 100 MG (*)] 100 mg PO HS 10/10/16 FLUDROCORTISONE ACETATE 0.2 mg PO DAILY 01/17/17 Midodrine HCl 30 mg PO DAILY 01/17/17 Vitamin C 1,000 mg PO DAILY 08/06/17 Lomotil Tab (*) 08/19/17 Metronidazole 08/19/17 Medical Decision Making ED Course/Re-evaluation: Labs, IV fluids, IV medications, stool studies ordered Vital signs show low blood pressure at systolic in the 90. Given 2 L normal saline and IV Zofran Laboratory studies reviewed and show creatinine of 2, lactic acid 1 point Did not reorder CT scan as performed on Friday and per who is a good historian showed inflammatory changes. 1245: ED decision to consult for admission for failure of outpatient Flagyl for C diff colitis, acute on chronic renal insufficiency and generalized weakness. Spoke with Tonja who kindly agrees to admit patient to med surg under the care of Dr. Rodrigues. This patient was seen under the supervision of my secondary supervising physician. I evaluated care for this patient independently. Discussed this patient with Dr. Mcrae who did not see the patient. Differential Diagnosis: Differential diagnosis includes but is not limited to C diff colitis, acute kidney injury, obstruction. - Data Points Laboratory Results: Laboratory Results 08/19/17 12:00 08/19/17 08/19/17 08/19/17 Unknown 12:00 12:00 PT 18.2 SEC H SEC (12.0-15.0) INR 1.49 H (0.83-1.16) APTT 31.7 SEC SEC (23.0-38.0) VBG Lactic Acid 1.8 mmol/L mmol/L (0.7-2.1) Sodium 143 mEq/L mEq/L (135-145) Potassium 3.7 mEq/L mEq/L (3.5-5.2) Chloride 108 mEq/L mEq/L (97-110) Carbon Dioxide 20 mEq/l L mEq/l (22-31) Anion Gap 15 mEq/L mEq/L (8-16) BUN 23 mg/dL mg/dL (7-23) Creatinine 2.0 mg/dL H mg/dL (0.7-1.3) Estimated GFR 33 Glucose 79 mg/dL mg/dL (70-100) Calcium 9.2 mg/dL mg/dL (8.5-10.4) Total Bilirubin 1.0 mg/dL mg/dL (0.1-1.4) Conjugated Bilirubin 0.6 mg/dL H mg/dL (0.0-0.5) Unconjugated Bilirubin 0.4 mg/dL mg/dL (0.0-1.1) AST 46 IU/L IU/L (17-59) ALT 57 IU/L IU/L (21-72) Alkaline Phosphatase 62 IU/L IU/L (38-126) Total Protein 5.4 g/dL L g/dL (6.3-8.2) Albumin 3.0 g/dL L g/dL (3.5-5.0) Medications Given: Discontinued Medications Sodium Chloride (Ns) 1,000 mls @ 0 mls/hr IV ONCE ONE; Wide Open PRN Reason: Protocol Stop: 08/19/17 12:15 Last Admin: 08/19/17 12:17 Dose: 1,000 mls Sodium Chloride (Ns) 1,000 mls @ 0 mls/hr IV ONCE ONE; Wide Open PRN Reason: Protocol Stop: 08/19/17 12:15 Last Admin: 08/19/17 12:17 Dose: 1,000 mls Departure - Departure Disposition: [facility] Clinical Impression: Clostridium difficile colitis, Weakness generalized, Acute on chronic renal insufficiency Condition: Fair
[2017-08-19 12:24] LABS: PLATELET COUNT 135 10^3/uL (150-400)
[2017-08-19 12:32] LABS: INR 1.49 (0.83-1.16); PROTIME(PATIENT) 18.2 SEC (12.0-15.0)
[2017-08-19] MEDS ORDERED: ONDANSETRON 4 MG/2 ML VIAL IVP PRN (15:39)
[2017-08-19] MEDS ORDERED: PROMETHAZINE HCL 25 MG TAB PO PRN (15:39)
[2017-08-19] MEDS ORDERED: oxyCODONE IR 5 MG TAB PO PRN (15:39)
[2017-08-19] MEDS ORDERED: ACETAMINOPHEN 325 MG TAB PO PRN (15:39)
[2017-08-19] MEDS ORDERED: PROMETHAZINE HCL 25 MG/ML INJ IVP PRN (15:39)
--- NOTE | 2017-08-19 15:49 | PDGENHP ---
History and Physical - Chief Complaint Acute diarrhea - History of Present Illness Primary care provider: Dr. Pat Primary oncologist: Dr. Isidro Jimenez Primary interventional radiologist: Dr. Shannon Ferguson HPI: 67-year-old male presenting with acute diarrhea characterized as nonbloody , liquid green stool occurring 10-20 times daily with onset of symptoms 4 days ago and duration persistent thereafter. He reports associated anorexia, oliguria, weight loss of 8 lb. Symptom onset was sudden, patient's symptoms were on alleviated by Imodium taken at home, he presented to urgent care 3 days prior to this presentation where he had a GI PCR performed, abdominal CT which demonstrated reported inflammatory colonic changes. The patient was prescribed Lomotil at that time, initiated 2 days prior to this presentation, and the patient was contacted 2 days prior to this presentation and notified that his GI test was positive for C diff, and a prescription for oral metronidazole was sent to his pharmacy. The patient initiated metronidazole on the day prior to this presentation, and has received approximately 3 doses. He has continued to take Lomotil. He describes some associated pain located in his lower abdomen, but is not been escalating. He also reports that he intermittently experiences hiccups, which he attributes to his treatment for his malignancy. History Information - Allergies/Home Medication List Allergies/Adverse Reactions: ceftriaxone [From Rocephin] Allergy (Intermediate, Verified 06/06/17 10:29) Swelling/neck,face,throat POISON OAK Allergy (Severe, Uncoded 10/03/16 11:10) Other-Enter Comments SALMON Allergy (Intermediate, Uncoded 10/03/16 11:10) Vomiting SUPER GLUE Allergy (Uncoded 10/03/16 11:10) Home Medications: Cholecalciferol Vit D3 [Vitamin D3 (*)] 1,000 units PO DAILY 09/21/16 [Last Taken 08/19/17] Fludrocortisone Acetate [Florinef 0.1 MG (RX)] 0.1 mg PO DAILY 01/17/17 [Last Taken 08/19/17] Midodrine HCl 10 mg PO DAILY 01/17/17 [Last Taken 08/19/17] Ascorbic Acid [Vitamin C 500 mg (*)] 2,000 mg PO DAILY 08/06/17 [Last Taken 11/29] Diphenoxylate HCl/Atrop Sulf [Lomotil Tab (*)] 1 tab PO QID PRN 08/19/17 [Last Taken 08/19/17 09:00] Gabapentin [Neurontin 300 MG (*)] 300 mg PO HS 08/19/17 [Last Taken 08/18/17] Ondansetron Odt [Zofran Odt 4 mg (*)] 8 mg PO Q8HRS PRN 08/19/17 [Last Taken Unknown] metroNIDAZOLE [Flagyl 500 mg (*)] 500 mg PO TID 08/19/17 [Last Taken 08/19/17 03 :00] I have personally reviewed and updated: family history, medical history, social history, surgical history - Past Medical History Additional medical history: Obstructive sleep apnea on CPAP. Paroxysmal atrial fibrillation. 2006 deep venous thrombosis with pulmonary embolism, subsequently received Coumadin, then Eliquis, then his anticoagulation was discontinued in November of 2016 after he experienced a subdural hematoma, IVC filter has been placed. 2014 bladder cancer diagnosis, metastatic, currently in remission, most recent bone scan in January of 2017. Chronic kidney disease stage 3 with baseline creatinine 1.1-1.8. Chronic neuropathy. Osteoarthritis in the back - Surgical History Additional surgical history: 2014 cystectomy with externalization and ostomy bag for urine output. Regular renal stent replacement, most recently 2017. Cholecystectomy. Knee shoulder surgeries. IVC filter - Family History Additional family history: No family history of inflammatory bowel disease, father had gastric ulcers - Social History Smoking Status: Never smoked Alcohol Use: None Drug Use: None Additional social history: Independent in ADLs Review of Systems Review of Systems: ROS: 10pt was reviewed & negative except for what was stated in HPI & below Constitutional: Reports: weight loss, other (Anorexia) Gastrointestinal: Reports: abdominal pain, diarrhea, nausea Physical Exam Physical Exam: Temp Pulse Resp BP Pulse Ox 36.3 C 63 14 128/82 H 96 08/19/17 14:59 08/19/17 14:59 08/19/17 14:59 08/19/17 14:59 08/19/17 14:59 Constitutional: no apparent distress, not in pain (3/10 pain), uncomfortable, No chronically ill appearing Eyes: PERRL, anicteric sclera, EOMI Ears, Nose, Mouth, Throat: moist mucous membranes, hearing normal, ears appear normal, no oral mucosal ulcers Cardiovascular: regular rate and rhythym, no murmur, rub, or gallop, edema ( Trace bilateral lower extremities) Respiratory: no respiratory distress, no rales or rhonchi, clear to auscultation , other (Intermittent hiccups during exam) Gastrointestinal: normoactive bowel sounds, tenderness (Mild in the lower abdomen), No guarding, No distension Skin: warm, No abrasion, No rash Neurologic: AAOx3, No sensation intact bilaterally (Subjective paresthesias bilateral lower extremities), No weakness (Motor strength 5/5 bilateral lower extremities) Psychiatric: interacting appropriately, not anxious, not encephalopathic, thought process linear Lab Data & Imaging Review 08/19/17 Unknown 08/19/17 12:00 WBC 4.11 10^3/uL (3.80-9.50) 08/19/17 Unknown RBC 4.41 10^6/uL (4.40-6.38) 08/19/17 Unknown Hgb 14.0 g/dL (13.7-17.5) 08/19/17 Unknown Hct 41.5 % (40.0-51.0) 08/19/17 Unknown MCV 94.1 fL (81.5-99.8) 08/19/17 Unknown MCH 31.7 pg (27.9-34.1) 08/19/17 Unknown MCHC 33.7 g/dL (32.4-36.7) 08/19/17 Unknown RDW 14.6 % (11.5-15.2) 08/19/17 Unknown Plt Count 135 10^3/uL (150-400) L 08/19/17 Unknown MPV 9.7 fL (8.7-11.7) 08/19/17 Unknown Neut % (Auto) Not Reported 08/19/17 Unknown Lymph % (Auto) Not Reported 08/19/17 Unknown [place] % (Auto) Not Reported 08/19/17 Unknown Eos % (Auto) Not Reported 08/19/17 Unknown Baso % (Auto) Not Reported 08/19/17 Unknown Nucleat RBC Rel Count Not Reported 08/19/17 Unknown Absolute Neuts (auto) Not Reported 08/19/17 Unknown Absolute Lymphs (auto) Not Reported 08/19/17 Unknown Absolute Monos (auto) Not Reported 08/19/17 Unknown Absolute Eos (auto) Not Reported 08/19/17 Unknown Absolute Basos (auto) Not Reported 08/19/17 Unknown Absolute Nucleated RBC Not Reported 08/19/17 Unknown Immature Gran % Not Reported 08/19/17 Unknown Seg Neutrophils % 72.0 % 08/19/17 Unknown Band Neutrophils % 4.0 % 08/19/17 Unknown Lymphocytes % 12.0 % 08/19/17 Unknown Monocytes % 12.0 % 08/19/17 Unknown Eosinophils % 0 % 08/19/17 Unknown Basophils % 0 % 08/19/17 Unknown Metamyelocytes % 0 % 08/19/17 Unknown Myelocytes % 0 % 08/19/17 Unknown Promyelocytes % 0 % 08/19/17 Unknown Blast Cells % 0 % 08/19/17 Unknown Immature Gran # Not Reported 08/19/17 Unknown Absolute Seg Neuts 2.96 10^/uL (1.70-6.50) 08/19/17 Unknown Absolute Band Neuts 0.16 10^3/uL (0.00-0.70) 08/19/17 Unknown Absolute Lymphocytes 0.49 10^3/uL (1.00-3.00) L 08/19/17 Unknown Absolute Monocytes 0.49 10^3/uL (0.30-0.80) 08/19/17 Unknown Absolute Eosinophils 0.00 10^3/uL (0.03-0.40) L 08/19/17 Unknown Absolute Basophils 0.00 10^3/uL (0.02-0.10) L 08/19/17 Unknown Absolute Metamyelocyte 0.00 10^3/mL (0.00-0.00) 08/19/17 Unknown Absolute Myelocytes 0.00 10^3/mL (0.00-0.00) 08/19/17 Unknown Absolute Promyelocytes 0.00 10^3/uL (0.00-0.00) 08/19/17 Unknown Absolute Plasma Cells 0.00 10^3/uL (0.00-0.00) 08/19/17 Unknown RBC/WBC/PLT Morphology NORMAL (NORMAL) 08/19/17 Unknown Absolute Blast Cells 0.00 10^3/uL (0.00-0.00) 08/19/17 Unknown Plasma Cells % 0 % 08/19/17 Unknown Platelet Estimate DECREASED (ADEQ) L 08/19/17 Unknown PT 18.2 SEC (12.0-15.0) H 08/19/17 Unknown INR 1.49 (0.83-1.16) H 08/19/17 Unknown APTT 31.7 SEC (23.0-38.0) 08/19/17 Unknown VBG Lactic Acid 1.8 mmol/L (0.7-2.1) 08/19/17 12:00 Sodium 143 mEq/L (135-145) 08/19/17 12:00 Potassium 3.7 mEq/L (3.5-5.2) 08/19/17 12:00 Chloride 108 mEq/L (97-110) 08/19/17 12:00 Carbon Dioxide 20 mEq/l (22-31) L 08/19/17 12:00 Anion Gap 15 mEq/L (8-16) 08/19/17 12:00 BUN 23 mg/dL (7-23) 08/19/17 12:00 Creatinine 2.0 mg/dL (0.7-1.3) H 08/19/17 12:00 Estimated GFR 33 08/19/17 12:00 Glucose 79 mg/dL (70-100) 08/19/17 12:00 Calcium 9.2 mg/dL (8.5-10.4) 08/19/17 12:00 Total Bilirubin 1.0 mg/dL (0.1-1.4) 08/19/17 12:00 Conjugated Bilirubin 0.6 mg/dL (0.0-0.5) H 08/19/17 12:00 Unconjugated Bilirubin 0.4 mg/dL (0.0-1.1) 08/19/17 12:00 AST 46 IU/L (17-59) 08/19/17 12:00 ALT 57 IU/L (21-72) 08/19/17 12:00 Alkaline Phosphatase 62 IU/L (38-126) 08/19/17 12:00 Total Protein 5.4 g/dL (6.3-8.2) L 08/19/17 12:00 Albumin 3.0 g/dL (3.5-5.0) L 08/19/17 12:00 Assessment & Plan Assessment: 67-year-old male presents with acute C difficile colitis and resultant acute kidney injury on chronic kidney disease stage 3 Plan: 1. Acute C difficile colitis. New problem this provider, further workup indicated. Evidenced by recent diagnosis on PCR testing at urgent care as well as reported inflammatory changes on abdominal CT -reviewed outside records including 08/06/[address] Shannon Ferguson, reporting that she exchanged the bilateral stents with prophylactic Invanz, and this antibiotic may be the patient's precipitating factor to his C diff -prior to that stent exchange, the patient had 1 in May of 2017 and he received ceftriaxone as his prophylactic antibiotic, experiencing reported allergic reaction at that time -may be prudent to adjust the class of prophylactic antibiotics for future stents given this episode of C diff, and the patient could receive an outpatient infectious disease consultation in order to assist in the management moving forward -obtain outside records including CT scan from urgent care -given patient's extended use of Imodium and Lomotil, he is at risk megacolon and I have counseled the patient and his nurse that if he experiences acute worsening of his abdominal pain, to please contact her covering provider and we will repeat abdominal imaging -white count is currently reassuring, a continue monitor -given the severity of symptoms in the patient's stooling approximately every 20 min, will initiate him on oral vancomycin as well as IV metronidazole comma to be de-escalated to single agent vancomycin once patient's symptoms are clinically stabilized -initiate IV fluids at 150 cc/hour given his the extent of his ongoing fluid losses -antiemetics as needed 2. Acute kidney injury on chronic kidney disease stage 3. Evidenced by serum creatinine level of 2.0 and baseline creatinine 1.1-1.8, most likely secondary to hypovolemia in the setting of active volume losses -continue IV normal saline, monitor urine output via ostomy bag, repeat serum creatinine level in a.m. 3. Thrombocytopenia. Continue monitor 4. History of deep venous thrombosis and pulmonary embolism. Reportedly provoked in 2006, patient currently with IVC filter and no active anticoagulation given subdural hematoma approximately 9 months ago -continue to monitor for any worsening in his lower extremity edema or chest pain which could be evidence of involving venous thromboembolism 5. Bladder cancer. Diagnosis 2014, currently in remission, patient's reports that bone scan was compared to CT scan last January, and the patient's abnormalities on recent CT imaging at urgent care are secondary to osteoarthritic changes as opposed to metastases, per her conversation with Dr. Jimenez after his staging last fall 6. Neuropathy. Chronic, continue gabapentin Diet. Regular Prophylaxis. High risk patient, SCDs, currently has IVC filter, history of subdural hematoma blood thinners Code. Full per patient, is MD POA Disposition. Anticipated discharge is uncertain, anticipated length stay greater than 48 hr for reasonable medical necessity including acute C difficile colitis in setting of high risk comorbid acute kidney injury on chronic kidney disease and bladder cancer. I have discussed patient's presentation with Tonja Santa, hospitalist provider, she has signed out the patient to me for evaluation and she will assume the patient's care tomorrow.
[2017-08-19] MEDS ORDERED: chlorproMAZINE HCL 25 MG TAB PO PRN (16:02)
[2017-08-19] MEDS: VANCOMYCIN 125 MG/2.5 ML UDL PO SCH ×2 (16:05→21:03)
[2017-08-19] MEDS: NS 1,000 ML IV SCH (16:05)
--- NOTE | 2017-08-19 16:11 | PDMN ---
Medical Necessity Medical necessity: est los>2mn for acute c diff colitis, at risk for megacolon, and THO on CKD; admit for IVF, IV flagyl, oral vanco; hx bladder cancer, neuropathy; per order and H&P 08/19/17
[2017-08-19] MEDS: GABAPENTIN 300 MG CAP PO SCH (21:04)
[2017-08-20] MEDS: NS 1,000 ML IV SCH ×3 (01:50→18:45)
[2017-08-20] MEDS: CALCIUM CARBONATE 500 MG CHEWABLE TAB PO PRN ×4 (01:50→22:44)
[2017-08-20] MEDS: VANCOMYCIN 125 MG/2.5 ML UDL PO SCH ×4 (05:11→21:07)
[2017-08-20 06:06] LABS: PLATELET COUNT 130 10^3/uL (150-400)
[2017-08-20] MEDS ORDERED: NON-FORMULARY NEW DRUG (Midodrine Hcl [Midodrine Hcl] 10 MG) PO SCH (09:00)
--- NOTE | 2017-08-20 09:07 | HOSPPROG ---
Hospitalist Progress Note Assessment/Plan: Mr Herrmann is a 67 y/o male who presented to the ER with multiple bouts of diarrhea (upto 10-20 times daily. Today is my first encounter with the patient , reviewed his care with Dr Rodrigues who admitted him. *acute c difficile colitis -oral vancomycin + Flagyl -will dc Flagyl with stable wbc count and no hypotension -should get treatment prophylaxis when he gets antibiotics *acute kidney injury on CKD stage3 -improved with hydration (baseline is 1.1-1.8) -recheck labs in a.m. *Thrombocytopenia -follow * History of deep venous thrombosis and pulmonary embolism, provoked in 2006 -IVC filter -not on OAC due to a subdural hematoma approximately 9 months ago * Bladder cancer, in remission -diagnosed in 2014 -followed by Dr Jimenez * Neuropathy -continue gabapentin *Plan: continue IV hydration, recheck kidney function in a.m. Subjective: Rommel has no complaints of abdominal pain, overall not feeling well. Objective: Vital Signs Temp Pulse Resp BP Pulse Ox 36 C 73 16 149/80 H 95 08/20/17 07:40 08/20/17 07:40 08/20/17 07:40 08/20/17 07:40 08/20/17 07:40 Microbiology 08/19/17 16:02 Gastrointestinal Tract Panel (PCR) - Final Stool Clostridium Difficile Detected Laboratory Results 08/20/17 04:27 08/20/17 04:27 08/19/17 08/20/17 08/21/17 05:59 05:59 05:59 Intake Total 2640 Output Total 225 Balance 2415 PT 18.2 SEC (12.0-15.0) H 08/19/17 Unknown INR 1.49 (0.83-1.16) H 08/19/17 Unknown - Physical Exam Constitutional: no apparent distress, appears nourished, not in pain Eyes: PERRL Ears, Nose, Mouth, Throat: hearing normal Cardiovascular: regular rate and rhythym Respiratory: no respiratory distress Gastrointestinal: normoactive bowel sounds Skin: warm Musculoskeletal: full muscle strength Neurologic: AAOx3 Psychiatric: interacting appropriately ICD10 Worksheet Patient Problems: Problems Problem Status Onset Acute on chronic renal insufficiency Acute Clostridium difficile colitis Acute Weakness generalized Acute Altered mental status Acute Atrial fibrillation and flutter Acute Bladder tumor Acute Chest pain Acute Lightheadedness Acute Metastatic cancer to brain Acute Orthostatic hypotension Acute VRE (vancomycin-resistant Enterococci) Acute 08/04/15
[2017-08-20] MEDS: MIDODRINE HCL 5 MG TAB PO SCH (09:15)
[2017-08-20] MEDS: FLUDROCORTISONE ACETATE 0.1 MG TAB PO SCH (09:15)
[2017-08-20] MEDS: CHOLECALCIFEROL VIT D3 1,000 UNITS TAB PO SCH (09:16)
[2017-08-20] MEDS: ASCORBIC ACID 500 MG TAB PO SCH (09:35)
--- NOTE | 2017-08-20 11:56 | ASMTCMCOM ---
CM Note CM Note Notes: Spoke w/[employer], anticipate pt will dc home w/support of when medically stable. CM available for any changes. DC Plan: Independent Date Signed: 08/20/2017 11:56 AM Electronically Signed By:Tamie Phillips RN
[2017-08-20] MEDS ORDERED: PROTOCOL MAGNESIUM 1 DOSE IV PRN (14:52)
[2017-08-20] MEDS ORDERED: PROTOCOL POTASSIUM 1 DOSE MISC PRN ×2 (14:52→16:41)
[2017-08-20] MEDS ORDERED: MAGNESIUM SULF 1 GM/DEXTROSE 100 ML IV ONE (16:39)
[2017-08-20] MEDS ORDERED: POTASSIUM CL 10 MEQ TAB PO ONE (18:22)
[2017-08-20] MEDS: GABAPENTIN 300 MG CAP PO SCH (21:07)
[2017-08-21] MEDS: NS 1,000 ML IV SCH ×2 (03:48→10:22)
[2017-08-21] MEDS: VANCOMYCIN 125 MG/2.5 ML UDL PO SCH ×4 (05:48→21:13)
[2017-08-21] MEDS: CALCIUM CARBONATE 500 MG CHEWABLE TAB PO PRN ×2 (10:11→14:34)
[2017-08-21] MEDS: ASCORBIC ACID 500 MG TAB PO SCH (10:11)
[2017-08-21] MEDS: CHOLECALCIFEROL VIT D3 1,000 UNITS TAB PO SCH (10:11)
[2017-08-21] MEDS: MIDODRINE HCL 5 MG TAB PO SCH (10:11)
[2017-08-21] MEDS: FLUDROCORTISONE ACETATE 0.1 MG TAB PO SCH (10:23)
--- NOTE | 2017-08-21 13:49 | HOSPPROG ---
Hospitalist Progress Note Assessment/Plan: Hospitalist Progress Note Assessment/Plan: Mr Herrmann is a 67 y/o male who presented to the ER with multiple bouts of diarrhea (up to 10-20 times daily.) Today is my first encounter with the patient , chart reviewed. Plan reviewed with RN at bedside. *acute c difficile colitis -oral vancomycin -less stool -should get treatment prophylaxis when he gets antibiotics *acute kidney injury on CKD stage3 -improved with hydration (baseline is 1.1-1.8) -return to baseline *Thrombocytopenia -follow * History of deep venous thrombosis and pulmonary embolism, provoked in 2006 -IVC filter -not on OAC due to a subdural hematoma approximately 9 months ago * Bladder cancer, in remission -diagnosed in 2014 -followed by Dr Jimenez * Neuropathy -continue gabapentin *pyuria -no symptoms -no treatment currently -follow *Hypotension -mild -cont fluids *weakness -therapy *Plan: continue IV hydration PT supportive care not ready for home maybe DC in am Subjective: Still feeling weak with cramps. at bedside. Objective: Vital Signs Temp Pulse Resp BP Pulse Ox 36.9 C 67 17 118/81 H 95 08/20/17 22:46 08/20/17 22:46 08/20/17 22:46 08/20/17 22:46 08/20/17 22:46 Laboratory Results 08/20/17 04:27 08/21/17 03:58 08/20/17 08/21/17 08/22/17 05:59 05:59 05:59 Intake Total 2640 5020 683 Output Total 225 2475 300 Balance 2415 2545 383 PT 18.2 SEC (12.0-15.0) H 08/19/17 Unknown INR 1.49 (0.83-1.16) H 08/19/17 Unknown - Physical Exam Constitutional: no apparent distress, appears nourished, uncomfortable Eyes: PERRL, anicteric sclera, EOMI Ears, Nose, Mouth, Throat: moist mucous membranes, hearing normal, ears appear normal Cardiovascular: No JVD, No tachycardia, No edema Respiratory: no respiratory distress, no rales or rhonchi, clear to auscultation Gastrointestinal: normoactive bowel sounds, tenderness, distension, No ascites, No guarding Skin: warm, normal color, No mottled Musculoskeletal: normal joint ROM, no joint effusions, generalized weakness Neurologic: AAOx3 Psychiatric: interacting appropriately, not anxious, not encephalopathic, thought process linear ICD10 Worksheet Patient Problems: Problems Problem Status Onset Atrial fibrillation and flutter Acute Bladder tumor Acute Lightheadedness Acute Orthostatic hypotension Acute VRE (vancomycin-resistant Enterococci) Acute 08/04/15 Altered mental status Acute Metastatic cancer to brain Acute Chest pain Acute Clostridium difficile colitis Acute Weakness generalized Acute Acute on chronic renal insufficiency Acute
[2017-08-21] MEDS: ONDANSETRON DISINTEGRATING 4 MG TAB PO PRN (16:03)
[2017-08-21] MEDS ORDERED: POTASSIUM CL 10 MEQ TAB PO ONE (17:42)
[2017-08-21] MEDS: GABAPENTIN 300 MG CAP PO SCH (21:13)
[2017-08-22] MEDS: VANCOMYCIN 125 MG/2.5 ML UDL PO SCH ×4 (05:00→21:20)
[2017-08-22] MEDS: NS 1,000 ML IV SCH (05:15)
[2017-08-22] MEDS ORDERED: POTASSIUM CL 10 MEQ TAB PO ONE ×2 (08:03→19:36)
[2017-08-22] MEDS: ASCORBIC ACID 500 MG TAB PO SCH (09:38)
[2017-08-22] MEDS: CALCIUM CARBONATE 500 MG CHEWABLE TAB PO PRN ×3 (09:40→18:38)
[2017-08-22] MEDS: CHOLECALCIFEROL VIT D3 1,000 UNITS TAB PO SCH (09:40)
[2017-08-22] MEDS: FLUDROCORTISONE ACETATE 0.1 MG TAB PO SCH (09:40)
[2017-08-22] MEDS: MIDODRINE HCL 5 MG TAB PO SCH (09:57)
--- NOTE | 2017-08-22 10:27 | HOSPPROG ---
Hospitalist Progress Note Assessment/Plan: Hospitalist Progress Note Assessment/Plan: Mr Herrmann is a 67 y/o male who presented to the ER with multiple bouts of diarrhea (up to 10-20 times daily.) *acute c difficile colitis -oral vancomycin -less stool -should get treatment prophylaxis when he gets antibiotics *acute kidney injury on CKD stage3 -improved with hydration (baseline is 1.1-1.8) -return to baseline *Thrombocytopenia -follow * History of deep venous thrombosis and pulmonary embolism, provoked in 2006 -IVC filter -not on OAC due to a subdural hematoma approximately 9 months ago * Bladder cancer, in remission -diagnosed in 2014 -followed by Dr Jimenez * Neuropathy -continue gabapentin *pyuria -no symptoms -no treatment currently -follow *Hypotension -mild -cont fluids *weakness -therapy *Plan: supportive care over night PT not ready for home maybe DC in am Subjective: Not feeling able to go home today. Still weak and diarrhea. Objective: Vital Signs Temp Pulse Resp BP Pulse Ox 36.6 C 60 16 143/73 H 93 08/22/17 08:00 08/22/17 08:00 08/22/17 08:00 08/22/17 08:00 08/22/17 08:00 Laboratory Results 08/20/17 04:27 08/22/17 05:05 08/21/17 08/22/17 08/23/17 05:59 05:59 05:59 Intake Total 5020 1452 Output Total 2475 1475 Balance 2545 -23 PT 18.2 SEC (12.0-15.0) H 08/19/17 Unknown INR 1.49 (0.83-1.16) H 08/19/17 Unknown - Physical Exam Constitutional: no apparent distress, appears nourished, not in pain Eyes: PERRL, anicteric sclera, EOMI Ears, Nose, Mouth, Throat: moist mucous membranes, hearing normal, ears appear normal Cardiovascular: No JVD, No tachycardia, No edema Respiratory: no respiratory distress, no rales or rhonchi, clear to auscultation Gastrointestinal: normoactive bowel sounds, tenderness, No ascites Skin: warm, normal color, No mottled Musculoskeletal: normal joint ROM, no joint effusions, generalized weakness Neurologic: AAOx3 Psychiatric: interacting appropriately, not anxious, not encephalopathic ICD10 Worksheet Patient Problems: Problems Problem Status Onset Atrial fibrillation and flutter Acute Bladder tumor Acute Lightheadedness Acute Orthostatic hypotension Acute VRE (vancomycin-resistant Enterococci) Acute 08/04/15 Altered mental status Acute Metastatic cancer to brain Acute Chest pain Acute Clostridium difficile colitis Acute Weakness generalized Acute Acute on chronic renal insufficiency Acute
[2017-08-22] MEDS ORDERED: MAGNESIUM SULF 1 GM/DEXTROSE 100 ML IV ONE (16:05)
[2017-08-22] MEDS ORDERED: MAGNESIUM SULF 1 GM/DEXTROSE 100 ML BAG IV ONE (16:07)
[2017-08-22] MEDS: GABAPENTIN 300 MG CAP PO SCH (21:20)
[2017-08-23] MEDS: VANCOMYCIN 125 MG/2.5 ML UDL PO SCH ×4 (06:17→20:41)
[2017-08-23] MEDS ORDERED: POTASSIUM CL 10 MEQ TAB PO ONE ×2 (07:31→20:40)
[2017-08-23] MEDS ORDERED: MAGNESIUM SULF 1 GM/DEXTROSE 100 ML IV ONE (07:32)
[2017-08-23] MEDS: ASCORBIC ACID 500 MG TAB PO SCH (08:01)
[2017-08-23] MEDS: MIDODRINE HCL 5 MG TAB PO SCH (08:01)
[2017-08-23] MEDS: FLUDROCORTISONE ACETATE 0.1 MG TAB PO SCH (08:02)
[2017-08-23] MEDS: CHOLECALCIFEROL VIT D3 1,000 UNITS TAB PO SCH (08:02)
--- NOTE | 2017-08-23 09:14 | HOSPPROG ---
Hospitalist Progress Note Assessment/Plan: # c. dif colitis - still poor PO intake and loose stools - cont vanc PO # metastatic bladder cancer s/p diverting ileostomy - not currently on treatment, follows with Dr Jimenez # THO on CKD - better, check labs tomorrow # bilat hydronephrosis with nephrostomy tubes # pyuria - no symptoms, follow # hx PE/DVT - IVC filter; no AC with hx ICH and mets # hx ICH and brain mets # neuropathy - gabapentin # adrenal nodules - outpatient f/u Subjective: still not eating very well; tolerating liquids; 6 small loose BMs in the last 24 hours Objective: Vital Signs Temp Pulse Resp BP Pulse Ox 36.4 C 62 16 149/85 H 95 08/23/17 07:38 08/23/17 07:38 08/23/17 07:38 08/23/17 07:38 08/23/17 07:38 Laboratory Results 08/20/17 04:27 08/23/17 06:20 08/22/17 08/23/17 08/24/17 05:59 05:59 05:59 Intake Total 1452 500 Output Total 1475 1000 Balance -23 -500 PT 18.2 SEC (12.0-15.0) H 08/19/17 Unknown INR 1.49 (0.83-1.16) H 08/19/[address] reviewed - Physical Exam Constitutional: no apparent distress, appears nourished Cardiovascular: regular rate and rhythym, no murmur, rub, or gallop Respiratory: no respiratory distress, no rales or rhonchi Gastrointestinal: soft, non-tender abdomen, other (ileal conduit with ostomy bag with nephrostomy tubes) ICD10 Worksheet Patient Problems: Problems Problem Status Onset Acute on chronic renal insufficiency Acute Clostridium difficile colitis Acute Weakness generalized Acute Altered mental status Acute Atrial fibrillation and flutter Acute Bladder tumor Acute Chest pain Acute Lightheadedness Acute Metastatic cancer to brain Acute Orthostatic hypotension Acute VRE (vancomycin-resistant Enterococci) Acute 08/04/15
[2017-08-23] MEDS: CALCIUM CARBONATE 500 MG CHEWABLE TAB PO PRN (14:03)
[2017-08-23] MEDS: ONDANSETRON DISINTEGRATING 4 MG TAB PO PRN (15:45)
--- NOTE | 2017-08-23 16:26 | ASMTCMCOM ---
CM Note CM Note Notes: Spoke w/RN, pt will likely dc home on Friday. MD keeping pt another night as he is still not eating very well, otherwise pt will dc home w/support of when medically stable. CM available for any changes. DC Plan: Independent Date Signed: 08/23/2017 10:57 AM Electronically Signed By:Tamie Phillips RN
[2017-08-23] MEDS: GABAPENTIN 300 MG CAP PO SCH (20:41)
[2017-08-24] MEDS: VANCOMYCIN 125 MG/2.5 ML UDL PO SCH (05:53)
[2017-08-24 08:21] VITALS: BP 129/77
[2017-08-24] MEDS ORDERED: POTASSIUM CL 10 MEQ TAB PO ONE (08:25)
[2017-08-24] MEDS: ASCORBIC ACID 500 MG TAB PO SCH (09:06)
[2017-08-24] MEDS: MIDODRINE HCL 5 MG TAB PO SCH (09:06)
[2017-08-24] MEDS: CHOLECALCIFEROL VIT D3 1,000 UNITS TAB PO SCH (09:07)
[2017-08-24] MEDS: FLUDROCORTISONE ACETATE 0.1 MG TAB PO SCH (09:07)
--- NOTE | 2017-08-24 10:13 | GDS ---
[f rep st] DISCHARGE SUMMARY ALL DIAGNOSES: 1. Acute Clostridium difficile colitis. 2. Metastatic bladder cancer status post diverting ileostomy. 3. Bilateral hydronephrosis with nephrostomy tubes. 4. Acute kidney injury on chronic kidney disease. 5. Pyuria with no symptoms. 6. History of a pulmonary embolism and as well as deep vein thrombosis with an inferior vena cava fi lter in place. 7. History of intracranial hemorrhage and brain metastatic disease. 8. Neuropathy. 9. Adrenal nodule which needs outpatient followup. HOSPITAL COURSE: 1. A 67-year-old man admitted with diarrhea found to be C difficile colitis. He had been prescribed Flagyl as an outpatient, however, failed this. He has been placed on oral vancomycin as an inpatien t. He has done well. He continues to have 1 or 2 loose bowel movements a day. He feels as though h e is able to adequately hydrate himself and he is tolerating solid foods. He will be discharged home today with his daughter. I spoke with his daughter on the phone and she is comfortable with this pl an. His potassium has been slightly low, I suspect due to poor p.o. intake and loose bowel movements . Plan will be to take an additional 10 days of oral vancomycin. He will follow up with Dr. Jimenez on . He has a prescription to have a basic metabolic panel drawn on Friday, to be follow ed up on . He has a short course of potassium ordered given his low potassium. I would not want him on long-term potassium given his kidney disease. 2. Metastatic bladder cancer status post diverting ileostomy with bilateral hydronephrosis and nephr ostomy tubes: This has been stable. He will follow up with Dr. Jimenez. 3. History of a PE and DVT: He has an IVC filter in place. He is not on anticoagulation due to his tory of intracranial hemorrhage as well as brain metastasis. FOLLOWUP: 1. Basic metabolic panel on to assess stability of kidney function and potassium. 2. Dr. Jimenez for ongoing treatment of his metastatic bladder cancer. 3. Dr. Pat, his primary care physician, as needed. 4. Adrenal nodule seen on CAT scan which will need outpatient followup. 5. Assure his 2-week course of vancomycin is adequate treatment for his C difficile. BILLING: I spent more than 30 minutes on the day of discharge coordinating care. /[id number]/MODL
[2017-08-24] MEDS ORDERED: HEPARIN PRESERV FREE 1 UNIT/1 ML 5 ML SYR IVP SCH (10:15)
--- NOTE | 2017-08-24 13:53 | ASMTLACE ---
LACE Length of stay for Answers: 4-6 days current admission Acuity / Level of Answers: Yes Care: Did the patient have an inpatient admission? Comorbidities - select Answers: Any tumor (including all that apply lymphoma or leukemia) Other Notes: CKD; AFib, C diff, slee p apnea, DVT, # of Emergency department Answers: 1-2 visits in the last 6 months Score: 11 Date Signed: 08/24/2017 01:53 PM Electronically Signed By:NEW Almanza
--- NOTE | 2017-08-27 13:41 | ASDISCHSUM ---
Discharge Information Plan Status:Home with No Needs Medically Cleared to Leave:08/24/2017 Discharge Date:08/24/2017 CM D/C Disposition:Home, Routine, Self-Care ADT D/C Disposition: Projected Discharge Date:08/24/2017 Transportation at D/C:Family Discharge Delay Reason: Follow-Up Date:08/24/2017 Discharge Slot: Final Diagnosis: Placement Information Patient Contact Information Contact Name:HUI Relationship: Address:[address] [place] [address] [address] City:[facility] Phone: State/Zip Code:[place] [address] Email: Financial Information Financial Class:Medicare Primary Plan Desc:MEDICARE INPATIENT Primary Plan Number:[id number] Secondary Plan Desc: OUT OF STATE [facility] Secondary Plan Number:[id number] Assessment Information [facility] CM Progress Note CM Note CM Note Notes: Josias w/[employer], anticipate pt will dc home w/support of when medically stable. CM available for any changes. DC Plan: Independent Date Signed: 08/20/2017 11:56 AM Electronically Signed By:Tamie Phillips RN [facility] CM Progress Note CM Note CM Note Notes: Josias w/ROHAN, pt will likely dc home on Friday. keeping pt another night as he is still not eating very well, otherwise pt will dc home w/support of when medically stable. CM available for any changes. DC Plan: Independent Date Signed: 08/23/2017 10:57 AM Electronically Signed By:Tamie Phillips RN Intervention Information
== END 2017-08-24 11:39 | disposition home or self-care (01) | DRG 372 ==
LOC: F3E 13:58
PROVIDERS: ADMIT Internal Medicine; ATTEND Internal Medicine
DX: A04.72 Enterocolitis due to Clostridium difficile, not specified as recurrent (principal); N17.9 Acute kidney failure, unspecified; N39.0 Urinary tract infection, site not specified; N18.3 Chronic kidney disease, stage 3 (moderate); G47.33 Obstructive sleep apnea (adult) (pediatric); Z93.2 Ileostomy status; Z93.6 Other artificial openings of urinary tract status; Z86.718 Personal history of other venous thrombosis and embolism; Z86.711 Personal history of pulmonary embolism; Z85.51 Personal history of malignant neoplasm of bladder
CPT/HCPCS: 97116-GP; 97161-GP; 97165-GO; G8978-GP-CJ; G8979-GP-CI; G8987-GO-CI; G8988-GO-CI; G8989-GO-CI; J1642; J3475

== ENCOUNTER → 2017-10-08 | Outpatient (CLI) | payer OTHER, BC ==
[~2017-10-08] MED LIST changes: -ERTAPENEM 1 GM VIAL IV ONE; +HYDROCODONE/APAP 5/325 TAB ONE; -IOPAMIDOL (ISOVUE-300) 100 ML BTL ONE; +IOPAMIDOL (ISOVUE-370) 150 ML BTL IV ONE
== END ==
LOC: FIMAGING 07:50
PROVIDERS: ATTEND Specialist
DX: Z43.6 Encounter for attention to other artificial openings of urinary tract (principal); N13.9 Obstructive and reflux uropathy, unspecified
CPT/HCPCS: 50387; C1729; C1769; Q9967